=== PATIENT | female | born 1940 | race Caucasian/White ===

== ENCOUNTER → 2018-01-31 09:18 | Outpatient (CLI) | payer MEDICARE, SELFPAY ==
[2018-01-31 09:42] LABS: Add Manual Diff / Slide Review NO; Basophils Percent Auto 0.6 % (0-2); Eosinophils Percent Auto 1.9 % (2-4); Hematocrit 39.6 % (36-46); Hemoglobin 13.5 g/dL (12.0-16.0); Mean Corpuscular HGB Conc 34.1 % (30-36); Mean Corpuscular Hemoglobin 33.1 PG (26-34); Mean Corpuscular Volume 97.2 fL (80-100); Monocytes Percent Auto 12.1 % (3-14); Neutrophils Absolute Auto 2000 /uL (3000-5900); Neutrophils Percent Auto 51.4 % (50-75); Platelet Count 218 X10^3/uL (150-400); Red Blood Cell Count 4.07 X10^6/uL (4.0-5.2); Red Cell Distribution Width 12.8 % (11.6-14.8); White Blood Cell Count 3.8 X10^3/uL (4.5-11.0)
[2018-01-31 10:12] LABS: Alanine Aminotransferase 26 IU/L (9-52); Albumin 4.3 g/dL (3.5-5.0); Albumin Globulin Ratio 1.3 (1.0-2.8); Alkaline Phosphatase 68 U/L (38-126); Aspartate Aminotransferase 30 IU/L (14-36); BUN Creatinine Ratio 23.6 (6-22); Bilirubin Total 0.5 mg/dL (0.2-1.3); Blood Urea Nitrogen 26 mg/dL (7-17); Calcium 9.7 mg/dL (8.4-10.2); Carbon Dioxide 31 mmol/L (22-32); Chloride 99 mmol/L (98-107); Estimated Glomerular Filt Rate 48.4 mL/min (>60); Globulin 3.3 g/dL (1.7-4.1); Glucose 102 mg/dL (80-110); HEMOLYSIS < 15 (0-50); Potassium 4.4 mmol/L (3.4-5.1); Sodium 138 mmol/L (137-145); Total Protein 7.6 g/dL (6.3-8.2)
[2018-01-31 10:58] LABS: TSH w/ Reflex to FT4 1.61 uIU/mL (0.47-4.68)
== END ==
PROVIDERS: PCP Family Medicine; Visit Provider Family Medicine
DX: R53.83 Other fatigue (principal)
CPT/HCPCS: 36415; 80053; 84443; 85025

== ENCOUNTER 2018-03-06 09:52 | Day surgery (SDC) | payer MEDICARE, SELFPAY ==
[2018-03-06 10:18] VITALS: BP 145/83; PULSE 92; RESP 16; TEMP 35.9; O2SAT 99
[2018-03-06] MEDS: SODIUM CHLORIDE 0.9% 1,000 ML 200 ML IV (10:19)
--- NOTE | 2018-03-06 10:32 | PM.HP.1 ---
History of Present Illness Date Patient Seen: 03/06/18 Time Patient Seen: 10:32 Chief complaint: [id number] COLONOSCOPY Narrative: Very pleasant lady who is well known to me from prior visits. She presents today for her 1st screening colonoscopy. She denies any problems or symptoms related to the function of her GI tract. She reports that her mother with colon cancer sometime after the age of 60. Patient History Medical History History of herpes simplex infection (Chronic) Hyperlipidemia (Chronic) Hypothyroidism (Chronic ~1970) Sleep disturbance (Chronic) Surgical History S/P bilateral cataract extraction (Resolved) S/P excision of vocal cord nodule (Resolved) S/P total hysterectomy and bilateral salpingo-oophorectomy (Resolved) Family & Social History Family History: Reviewed 03/06/18 by Cassandra Iyer MD Social History: household members friend(s) Tobacco & Substance use: Smoking Status Former smoker Meds Home Medications Medication Instructions Recorded Confirmed Type acyclovir [Zovirax] 200 mg PO BID #60 cap 04/18/17 02/19/18 Rx VITAMIN D (Vitamin D3) 4,000 units PO QDAY #0 10/16/17 03/06/18 History ascorbic acid (vitamin C) 500 mg PO QDAY #0 10/16/17 03/06/18 History levothyroxine [Synthroid] 0.075 mg PO QAM #90 tab 11/07/17 03/06/18 Rx gabapentin 300 mg capsule 300 mg PO BID cap 01/31/18 03/06/18 History naproxen sodium 220 mg capsule 440 mg PO BID 01/31/18 03/06/18 History triamterene 37.5 1 cap PO QDAY #90 tab 01/31/18 03/06/18 Rx mg-hydrochlorothiazide 25 mg capsule letrozole 2.5 mg PO DAILY 03/06/18 03/06/18 History magnesium 500 mg PO DAILY 03/06/18 03/06/18 History Allergies Allergy/AdvReac Type Severity Reaction Status Date / Time latex [LATEX] Allergy Mild blisters Verified 02/19/18 13:22 Penicillins [PENICILLINS] Allergy Mild HIVES Verified 02/19/18 13:22 Review of Systems Review of Systems All systems reviewed & are unremarkable except as noted in HPI and below Exam Vital Signs (past 8 hours): - 03/06/18 10:18 Temperature 96.6 F L Pulse Rate 92 H Respiratory Rate 16 Blood Pressure 145/83 H Pulse Oximetry 99 Oxygen Delivery Method Room Air Narrative Exam Narrative: Very pleasant well-nourished well-developed lady in no distress. HEENT: Normocephalic and atraumatic, pupils equal round reactive to light accommodation with anicteric sclera. Lungs: Clear to auscultation bilaterally Heart: Regular rate and rhythm Abdomen: Soft, nontender, active bowel sounds Extremities: Warm and well perfused without edema Assessment & Plan Plan: Assessment/Plan Narrative: Very pleasant 77-year-old lady who presents for her 1st screening colonoscopy. We discussed the risks and benefits of procedure the patient has expressed a desire to completed today.
[2018-03-06] MEDS: MIDAZOLAM 5 MG/5 ML VIAL IV (10:46)
[2018-03-06] MEDS: fentaNYL 250 MCG/5 ML INJ IV (10:46)
--- NOTE | 2018-03-06 10:58 | PM.OP.1 ---
Operative Date/Time/Diagnoses Date of procedure: 03/06/18 Time of procedure: 10:58 Pre-op diagnosis: Screening Post-op diagnosis: same Procedure & Clinicians Procedure: Colonoscopy to the cecum Same procedure as scheduled: Yes Indications: No prior colonoscopy Family history of colon cancer in mother Surgeon: Cassandra Iyer Click Yes if Unassisted: Yes Anesthesia Type: Sedation (Versed 6 mg; fentanyl 200 mcg) Operative Notes Findings: 1. Excellent prep 2. No polyps or mass lesions 3. No AV malformations 4. Minimal diverticulosis limited to the sigmoid region 5. Grade 2 internal hemorrhoids Closure Type: not applicable Procedure in detail: After obtaining informed consent, the patient was brought to the GI suite and placed in the left lateral decubitus position on the examination table. After placement of appropriate monitors, the patient was given incremental doses of Versed and Fentanyl until an appropriate level of sedation was achieved. A time out was held per SCOAP protocol. A digital rectal examination was performed and did not reveal any masses or obstructing lesions. The colonoscope was gently passed into the patient's anus and the entire colon navigated to the level of the cecum with minimal difficulty. Once in the cecum, the scope was withdrawn being sure to go before and beyond all mucosal folds and prominences and get an excellent examination. The findings are noted above. At the level of the rectal vault, the scope was retroflexed and the internal anal canal was examined. The scope was straightened and air aspirated from the colon. The instrument was removed from the patient's body and the procedure was concluded. The patient was allowed to awaken from sedation without difficulty and taken to the post-anesthesia care unit in good condition. Total sedation time 23 min Total withdrawal time 9 min 22 sec Complications: none Condition: stable Disposition: PACU Plan for aftercare: 1. Discharge to home 2. Plan for next colonoscopy in 5 years or as clinically indicated
[2018-03-06 11:03] VITALS: BP 109/67; PULSE 75; RESP 12; TEMP 36.3; O2SAT 94
[2018-03-06 11:06] VITALS: BP 118/74; PULSE 70; RESP 10; O2SAT 94
[2018-03-06 11:11] VITALS: BP 117/74; PULSE 62; RESP 10; O2SAT 95
[2018-03-06] MEDS: ONDANSETRON 4 MG/2 ML INJ IV (11:11)
[2018-03-06 11:16] VITALS: BP 124/70; PULSE 63; RESP 12; TEMP 36.6
[2018-03-06 11:35] VITALS: BP 128/73; PULSE 66; RESP 16; TEMP 36.2; O2SAT 98
== END 2018-03-06 11:45 | disposition home or self-care (01) ==
LOC: ENDO 09:53
PROVIDERS: PCP Family Medicine; Visit Provider Surgery
PROC: 0DJD8ZZ Inspection of Lower Intestinal Tract, Via Natural or Artificial Opening Endoscopic (ICD-10-PCS; CPT 45378; principal; 2018-03-06 11:00)
DX: Z12.11 Encounter for screening for malignant neoplasm of colon (principal); Z80.0 Family history of malignant neoplasm of digestive organs; K57.30 Diverticulosis of large intestine without perforation or abscess without bleeding; K64.1 Second degree hemorrhoids
CPT/HCPCS: G0105; 99152; 99153; J2250; J2405; J3010

== ENCOUNTER → 2018-04-14 17:29 | Outpatient (CLI) | payer MEDICARE, SELFPAY ==
[2018-04-14 20:00] LABS: BUN Creatinine Ratio 16.9 (6-22); Blood Urea Nitrogen 22 mg/dL (7-17); Estimated Glomerular Filt Rate 39.9 mL/min (>60)
== END ==
PROVIDERS: Visit Provider Family Medicine
DX: R79.89 Other specified abnormal findings of blood chemistry (principal)
CPT/HCPCS: 36415; 82565; 84520

== ENCOUNTER → 2018-05-05 11:09 | Outpatient (CLI) | payer MEDICARE, SELFPAY ==
[2018-05-05 12:36] LABS: BUN Creatinine Ratio 15.5 (6-22); Blood Urea Nitrogen 17 mg/dL (7-17); Carbon Dioxide 30 mmol/L (22-32); Chloride 102 mmol/L (98-107); Estimated Glomerular Filt Rate 48.4 mL/min (>60); Glucose 99 mg/dL (80-110); HEMOLYSIS < 15 (0-50); Sodium 140 mmol/L (137-145)
[2018-05-05 12:37] LABS: Potassium 4.3 mmol/L (3.4-5.1)
[2018-05-05 13:43] LABS: Bacteria Urine None Seen; RBC Urine None Seen (0-5/HPF); WBC Urine None Seen (0-5/HPF)
[2018-05-05 15:14] LABS: Appearance Urine UA CLEAR; Bilirubin Urine UA NEGATIVE (NEGATIVE); Color Urine UA YELLOW; Glucose Urine UA NEGATIVE (Normal); Ketones Urine UA NEGATIVE (NEGATIVE); Leukocyte Esterase Urine UA NEGATIVE (NEGATIVE); Nitrite Urine UA NEGATIVE (Negative); Occult Blood Urine UA NEGATIVE (Negative); Protein Urine UA NEGATIVE (Negative); Specific Gravity Urine UA <=1.005 (1.000-1.035); Urobilinogen Urine UA 0.2 E.U./dL (0.2); pH Urine UA 6.5 (4.5-8.0)
[2018-05-05 16:18] LABS: Culture Indicated Urine Cult Not Indicated; Squamous Epithelial Cell Urine 0-1 /HPF
== END ==
PROVIDERS: PCP Family Medicine; Visit Provider Family Medicine
DX: N28.9 Disorder of kidney and ureter, unspecified (principal)
CPT/HCPCS: 36415; 80048; 81001

== ENCOUNTER → 2018-07-01 08:29 | Outpatient (CLI) | payer MEDICARE, SELFPAY ==
[2018-07-01 08:46] LABS: Add Manual Diff / Slide Review NO; Basophils Percent Auto 0.9 % (0-2); Eosinophils Percent Auto 1.8 % (2-4); Hematocrit 39.1 % (36-46); Hemoglobin 13.5 g/dL (12.0-16.0); Lymphocytes Percent Auto 44.7 % (25-40); Mean Corpuscular HGB Conc 34.6 % (30-36); Mean Corpuscular Hemoglobin 33.2 PG (26-34); Monocytes Percent Auto 11.1 % (3-14); Neutrophils Absolute Auto 1600 /uL (3000-5900); Neutrophils Percent Auto 41.5 % (50-75); Platelet Count 250 X10^3/uL (150-400); Red Blood Cell Count 4.07 X10^6/uL (4.0-5.2); Red Cell Distribution Width 12.9 % (11.6-14.8); White Blood Cell Count 3.9 X10^3/uL (4.5-11.0)
[2018-07-01 09:05] LABS: Alanine Aminotransferase 25 IU/L (9-52); Albumin 4.3 g/dL (3.5-5.0); Albumin Globulin Ratio 1.3 (1.0-2.8); Alkaline Phosphatase 66 U/L (38-126); Aspartate Aminotransferase 24 IU/L (14-36); Bilirubin Total 0.5 mg/dL (0.2-1.3); Blood Urea Nitrogen 22 mg/dL (7-17); Calcium 9.7 mg/dL (8.4-10.2); Carbon Dioxide 27 mmol/L (22-32); Chloride 102 mmol/L (98-107); Estimated Glomerular Filt Rate 54.1 mL/min (>60); Globulin 3.3 g/dL (1.7-4.1); Glucose 91 mg/dL (80-110); HEMOLYSIS < 15 (0-50); Potassium 4.1 mmol/L (3.4-5.1); Sodium 141 mmol/L (137-145); Total Protein 7.6 g/dL (6.3-8.2)
== END ==
PROVIDERS: Family Provider Family Medicine; PCP Family Medicine; Visit Provider Internal Medicine Hematology & Oncology
DX: D05.11 Intraductal carcinoma in situ of right breast (principal)
CPT/HCPCS: 36415; 80053; 85025

== ENCOUNTER → 2018-07-25 17:01 | Outpatient (CLI) | payer MEDICARE, SELFPAY ==
[2018-07-25 18:24] LABS: BUN Creatinine Ratio 17.5 (6-22); Blood Urea Nitrogen 21 mg/dL (7-17); Calcium 10.1 mg/dL (8.4-10.2); Carbon Dioxide 30 mmol/L (22-32); Chloride 101 mmol/L (98-107); Estimated Glomerular Filt Rate 43.8 mL/min (>60); Glucose 100 mg/dL (80-110); HEMOLYSIS < 15 (0-50); Potassium 4.2 mmol/L (3.4-5.1); Sodium 140 mmol/L (137-145)
== END ==
PROVIDERS: PCP Family Medicine; Visit Provider Family Medicine
DX: Z01.31 Encounter for examination of blood pressure with abnormal findings (principal)
CPT/HCPCS: 36415; 80048

== ENCOUNTER → 2018-09-04 11:35 | Outpatient (CLI) | payer MEDICARE, SELFPAY ==
--- NOTE | 2018-09-04 | DI.MG.S_ITS ---
BILATERAL DIGITAL SCREENING MAMMOGRAM 3D/2D WITH CAD: 09/04/2018 CLINICAL: Routine screening. Personal history of right breast cancer. Family history of breast cancer. Comparison is made to exams dated: 08/12/2017 mammogram, 12/20/2015 mammogram, 07/17/2012 mammogram, and 03/08/2011 mammogram - [facility]. The tissue of both breasts is heterogeneously dense. This may lower the sensitivity of mammography. Current study was also evaluated with a Computer Aided Detection (CAD) system. There are benign calcifications in both breasts. No significant masses, calcifications, or other findings are seen in either breast. There has been no significant interval change. IMPRESSION: There is no mammographic evidence of malignancy. A 1 year screening mammogram is recommended. This exam was interpreted at Station ID: [id number]. NOTE: For mammograms, a report in lay terms will be sent to the patient. Approximately 15% of breast malignancies will not be visualized mammographically. In the management of a palpable breast mass, a negative mammogram must not discourage biopsy of a clinically suspicious lesion. Electronically Signed By: Ector orlando/samira:09/09/2018 18:11:23 copy to: Lourdes Cordova letter sent: Normal Exam ACR BI-RADS Category 2: Benign Finding(s) 3342F
== END ==
PROVIDERS: Family Provider Family Medicine; PCP Family Medicine
DX: Z12.31 Encounter for screening mammogram for malignant neoplasm of breast (principal); Z85.3 Personal history of malignant neoplasm of breast; Z80.3 Family history of malignant neoplasm of breast
CPT/HCPCS: 77063; 77067

== ENCOUNTER → 2018-11-07 08:41 | Outpatient (CLI) | payer MEDICARE, SELFPAY | PROVIDERS: PCP Family Medicine; Visit Provider Ophthalmology | DX: H16.9 Unspecified keratitis (principal) | CPT/HCPCS: 87070; 87205 ==

== ENCOUNTER → 2018-11-10 10:24 | Outpatient (CLI) | payer MEDICARE, SELFPAY ==
--- NOTE | 2018-11-10 11:06 | DI.CT.S_ITS ---
PROCEDURE: CT CHEST WO CON INDICATIONS: lung nodule follow up TECHNIQUE: Noncontrast 2.0-2.5 mm thick sections acquired from the pulmonary apices to the posterior costophrenic angles. 7 mm thick coronal and sagittal MIP reformats were then acquired. A low radiation dose technique was utilized. COMPARISON: [facility], CT, THORAX WITHOUT CONTRAST, 08/14/2017, 8:01. [facility], CT, THORAX WITHOUT CONTRAST, 11/08/2017, 9:59. [facility], CT, CT CHEUNG, 12/10/2017, 14:03. FINDINGS: Image quality: Diagnostic, given the low radiation dose technique. Lungs and pleura: The 3 prior identified left lung nodules are again seen as is the single right-sided lung nodule. One of the left nodules is found to contain a small amount of peripheral calcification and none of these structures have changed over time. No new nodule has developed. Mediastinum: Heart size is normal. No pericardial effusion. No mediastinal adenopathy by size criteria. Thoracic aorta and central pulmonary arteries are normal in size. Esophagus is normal in caliber. No hiatal hernia. Bones and chest wall: No suspicious bony lesions. No vertebral body compression fractures. No axillary or supraclavicular adenopathy by size criteria. Thyroid gland is not well-seen by this noncontrast technique. Abdomen: Visualized upper abdomen solid organs and bowel loops appear normal in the absence of contrast. IMPRESSION: The prior pulmonary nodules present bilaterally have been small, one of which is faintly calcified, and likely granulomatous in origin. No followup recommended. This has not changed from July 2017. Dictated by: Carlos Garcia M.D. on 11/10/2018 at 12:14 Approved by: Carlos Garcia M.D. on 11/10/2018 at 12:23
== END ==
PROVIDERS: PCP Family Medicine; Visit Provider Family Medicine
DX: R91.8 Other nonspecific abnormal finding of lung field (principal)
CPT/HCPCS: 71250

== ENCOUNTER → 2018-12-24 08:36 | Outpatient (CLI) | payer MEDICARE, SELFPAY ==
[2018-12-24 09:55] LABS: Blood Urea Nitrogen 17 mg/dL (7-17); Calcium 10.2 mg/dL (8.4-10.2); Carbon Dioxide 32 mmol/L (22-32); Chloride 100 mmol/L (98-107); Estimated Glomerular Filt Rate 53.9 mL/min (>60); Glucose 111 mg/dL (80-110); HEMOLYSIS < 15 (0-50); Potassium 4.5 mmol/L (3.4-5.1); Sodium 137 mmol/L (137-145)
[2018-12-24 10:16] LABS: TSH w/ Reflex to FT4 1.45 uIU/mL (0.47-4.68)
== END ==
PROVIDERS: PCP Family Medicine; Visit Provider Family Medicine
DX: E03.9 Hypothyroidism, unspecified (principal); I10 Essential (primary) hypertension
CPT/HCPCS: 36415; 80048; 84443

== ENCOUNTER → 2019-09-07 11:07 | Outpatient (CLI) | payer MEDICARE, SELFPAY ==
--- NOTE | 2019-09-07 | DI.MG.S_ITS ---
BILATERAL DIGITAL SCREENING MAMMOGRAM 3D/2D WITH CAD: 09/07/2019 CLINICAL: Routine screening. Personal history of right breast cancer. Family history of breast cancer. Comparison is made to exams dated: 09/04/2018 mammogram - [facility], 08/12/2017 mammogram, and 12/20/2015 mammogram - [facility]. The tissue of both breasts is heterogeneously dense. This may lower the sensitivity of mammography. Current study was also evaluated with a Computer Aided Detection (CAD) system. There are benign calcifications in both breasts. No significant masses, calcifications, or other findings are seen in either breast. There has been no significant interval change. IMPRESSION: There is no mammographic evidence of malignancy. A 1 year screening mammogram is recommended. This exam was interpreted at Station ID: [id number]. NOTE: For mammograms, a report in lay terms will be sent to the patient. Approximately 15% of breast malignancies will not be visualized mammographically. In the management of a palpable breast mass, a negative mammogram must not discourage biopsy of a clinically suspicious lesion. Electronically Signed By: Ector orlando/samira:09/08/2019 09:09:04 copy to: Lourdes Heredia letter sent: Normal Exam ACR BI-RADS Category 2: Benign Finding(s) 3342F
== END ==
PROVIDERS: PCP Family Medicine; Referring Provider Family Medicine; Visit Provider Family Medicine
DX: Z12.31 Encounter for screening mammogram for malignant neoplasm of breast (principal); Z85.3 Personal history of malignant neoplasm of breast; Z80.3 Family history of malignant neoplasm of breast
CPT/HCPCS: 77063; 77067

== ENCOUNTER 2020-06-09 09:45 | Outpatient (RCR) | payer MEDICARE, SELFPAY ==
--- NOTE | 2020-05-02 09:00 | PT.OIE ---
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 female breast (05/02/20) Estrogen receptor positive status [ER+] (05/02/20) Past Medical History (Last Reviewed 06/07/19 @ 14:56 by Lourdes Heredia DO) History of herpes simplex infection (Chronic) Hyperlipidemia (Chronic) Hypothyroidism (Chronic ~1970) Sleep disturbance (Chronic) Past Surgical History (Last Reviewed 06/07/19 @ 14:56 by Lourdes Heredia DO) S/P bilateral cataract extraction (Resolved) S/P excision of vocal cord nodule (Resolved) S/P total hysterectomy and bilateral salpingo-oophorectomy (Resolved) Visit Care Team Role Provider Type Lourdes Heredia DO Primary Care Provider Physician Specialty: Family Practice Address: [facility], [facility] [place], [address] Email: [email or web address] Pedro Lopez MD Attending Provider Non-Staff Referring Provider Specialty: Radiology Address: [address] [place] [address], [id number] Email: Physical Therapy Initial Evaluation PT-OP-A Visit Information Start: 04/28/20 16:36 Freq: Status: Active Protocol: Document 05/02/20 09:05 [facility] (Rec: 05/03/20 08:59 [facility] [id number]) Out-Patient Physical Therapy Visit Information Visit Information Visit Type Initial Evaluation Visit Start Time 09:03 Visit Stop Time 09:50 Total Visit Minutes 47 Visit Number 1 Evaluation Information Evaluation Date 05/02/20 PT-OP-B Current Condition Start: 04/28/20 16:36 Freq: Status: Active Protocol: Document 05/02/20 09:05 [facility] (Rec: 05/02/20 09:45 [facility] [id number]) Current Condition History of Current Condition Onset Date 6 mo+ Current Complaints pain right axilla, posterior shoulder/shoulder blade History of Current Condition Patient reports gripping pain right armpit, and posterior shoulder, anterior chest; lumpectomy and radiation finished 2 years ago. 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 Couldn't tolerate medications prescribed , states couldn't get out of bed, so no active treatment at this time. Tried to get in for PT right about time Covid shut things down. Takes Alleve (mostly for thumb pain), hasn't changed her pain. Had friend give her post mastectomy exercises, but didn't seem to help. States she feels her shoulder ROM is getting worse. The pain is unpredictable, can do yardwork without pain. Pain is variable, can come on at any time. Denies redness, warmth, swelling. Prior Treatments and Tests recent mammogram negative Treatment Goals Patient/Caregiver Goals Minimize, eliminate the pain. Prior Functional Status Baseline Function- ADL's Independent Baseline Function- Mobility Independent Baseline Function- Recreation/Hobbies No limitations Current Functional Impairments (Reported) Functional Limitations- ADL's difficulty reaching overhead or behind her back. Functional Limitations- Recreation/ states pain can come on while Hobbies walking and she has to pause for 1-2 min to let it pass. PT-OP-C Subjective Start: 05/03/20 08:37 Freq: Status: Active Protocol: Document 05/02/20 09:05 [facility] (Rec: 05/03/20 08:59 [facility] [id number]) OP-PT Pain Assessment Pain Assessment Grid Paper Pain Assessment Grid Completed Yes Location right axilla, posterior shoulder/scapula Intensity 6 Description Aching,Spasm,Stabbing Frequency No Pattern Pain Aggravating Factors None Pain Alleviating Factors None Home Pain Medication Use Pain Medications Used Yes Patient Goal Taking Alleve Pain Behaviors Pain Behaviors Facial Grimacing,Guarding, Holding Area,Wincing PT-OP-E Functional Tests Start: 04/28/20 16:36 Freq: Status: Active Protocol: Document 05/02/20 09:05 [facility] (Rec: 05/03/20 08:59 [facility] [id number]) Functional Tests Apley's Scratch Test Action 1- Left posterior shoulder Action 1- Right anterior shoulder Action 2- Left T2 Action 2- Right posterior ear Action 3- Left T7 Action 3- Right L1 PT-OP-F Manual Assessment Start: 04/28/20 16:36 Freq: Status: Active Protocol: Document 05/02/20 09:05 [facility] (Rec: 05/03/20 08:59 [facility] [id number]) Manual Assessments Soft Tissue Assessment Soft Tissue Mobility Assessment increased soft tissue tightness right upper trap, levator scap, rhomboids PT-OP-J Posture/Palpation/Skin Start: 04/28/20 16:36 Freq: Status: Active Protocol: Document 05/02/20 09:05 [facility] (Rec: 05/03/20 08:59 [facility] [id number]) Posture Evaluation Position Sitting Head/C-Spine Posture Forward Head T-Spine Posture Increased Kyphosis Shoulder Posture (L) Rounded Scapula Posture (L) Protracted,(R) Protracted Arm Posture (L) Internally Rotated,(R) Internally Rotated Palpation Assessment Location UT, LS, rhomboids Palpation Location right Palpation Findings Soft Tissue Tightness,Muscle Guarding,Trigger Point PT-OP-K Range of Motion Start: 04/28/20 16:36 Freq: Status: Active Protocol: Document 05/02/20 09:05 [facility] (Rec: 05/03/20 08:59 [facility] [id number]) Cervical Spine Range of Motion Cervical Spine Active Degrees Flexion 55 Extension 40 Rotation Left 55 Rotation Right 70 Lateral Flexion Left 40 Lateral Flexion Right 55 ROM Limitations Soft Tissue Tightness Shoulder Goniometric Range of Motion Shoulder Right Flexion 142 Extension 24 Abduction 135 External Rotation at 45 degrees 55 Abduction Internal Rotation Behind Back (text) L1 Left Active Shoulder ROM WFL Yes Testing Position Sitting Shoulder ROM Limitations Shoulder ROM Limitations Soft Tissue Tightness PT-OP-M Strength Start: 04/28/20 16:36 Freq: Status: Active Protocol: Document 05/02/20 09:05 [facility] (Rec: 05/03/20 08:59 [facility] [id number]) Shoulder Strength Shoulder Manual Muscle Testing Right Flexion 4 Good Extension 4 Good Abduction (C5) 4 Good External Rotation 4- Good- Internal Rotation 4- Good- Left Flexion 5 Normal Extension 5 Normal Abduction (C5) 4+ Good+ External Rotation 4+ Good+ Internal Rotation 4+ Good+ PT-OP-N Lymphedema Start: 04/28/20 16:36 Freq: Status: Active Protocol: Document 05/02/20 09:05 [facility] (Rec: 05/03/20 08:59 [facility] [id number]) Lymphedema Measurements Upper Extremity Circumference Measurements right MCP 22 cm Wrist 17.3 cm 5 cm From Distal Crease 17.6 cm 10 cm From Distal Crease 20.7 cm 15 cm From Distal Crease 23.6 cm 20 cm From Distal Crease 24.7 cm 25 cm From Distal Crease 25.8 cm 30 cm From Distal Crease 27.7 cm 35 cm From Distal Crease 28.8 cm 40 cm From Distal Crease 30.7 cm 45 cm From Distal Crease 38.3 cm Left MCP 19.8 cm Wrist 17.5 cm 5 cm From Distal Crease 17.4 cm 10 cm From Distal Crease 19.8 cm 15 cm From Distal Crease 22.7 cm 20 cm From Distal Crease 24.4 cm 25 cm From Distal Crease 25.5 cm 30 cm From Distal Crease 26.5 cm 35 cm From Distal Crease 27.6 cm 40 cm From Distal Crease 30.9 cm 45 cm From Distal Crease 37.3 cm Comments Lymphedema Comments Patient is right handed PT-OP-Q Treatments Start: 04/28/20 16:36 Freq: Status: Active Protocol: Document 05/02/20 09:05 [facility] (Rec: 05/03/20 08:59 [facility] [id number]) Self-Care/Home Management Treatment Education Patient Education Home Exercise Program Other Education issued written handout PT-OP-T Assessment and Plan Start: 04/28/20 16:36 Freq: Status: Active Protocol: Document 05/02/20 09:05 [facility] (Rec: 05/03/20 08:59 [facility] [id number]) Physical Therapy Assessment Rehab Potential Rehabilitation Potential Good Evaluation Complexity Number of Personal Factors/Comorbidities 1-2 Number of Body Systems Impaired 3 Clinical Presentation at Evaluation Evolving Impairments Impairments Pain,ROM,Strength Goals 3 Impairment decreased right shoulder strength Short Term Goal (STG) Patient will be independent with HEP for purposes of right shoulder strengthening STG Duration 07/04/20 Hose Sprayer Goal (LTG) Patient will demonstrate 5/5 strength right shoulder LTG Duration 08/01/20 2 Impairment difficulty reaching overhead and behind her back Short Term Goal (STG) Patient will be independent with HEP for purposes of right shoulder ROM Hose Sprayer Goal (LTG) Patient will demonstrate full ROM of her right shoulder to allow her to reach overhead and behind her back for all ADL's and usual activities around the home LTG Duration 08/01/20 1 Impairment pain right axilla, posterior shoulder, scapular region Short Term Goal (STG) Decrease pain by at least 50% Hose Sprayer Goal (LTG) Decrease pain by at least 75% with all usual activities LTG Duration 08/01/20 Assessment Summary Assessment Patient presents with function limiting pain right subaxillary region and scapular area with signs and symptom consistent with soft tissue shortening, muscle imbalances. May be related to lumpectomy and radiation 2 years ago. Does not appear to have lymphedema in her right UE based on circumferential measurements, no palpable axillary cording. Patient does have mild increased size right breast as compared to left but patient not sure how this compares to prior to surgery so will need to monitor for any changes. Feel she would benefit from PT to improve her soft tissue mobility, ROM, and strength, to decrease her pain and improve her overall function in her right UE. Physical Therapy Plan Frequency and Duration Frequency of Treatment 2x/Week Duration of Treatment 12 weeks Plan of Care Start Date 05/02/20 Plan of Care End Date 08/01/20 Next Visit Focus/Plan Next Note Type Treatment Note Next Visit Plan Review HEP, add pulleys, manual techniques to improve soft tissue mobility right axilla. Consider gentle moist heat.
--- NOTE | 2020-05-03 11:13 | PT.OPPOC ---
Physical, Occupational & Speech Therapy At [facility] 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 female breast (05/02/20) Estrogen receptor positive status [ER+] (05/02/20) Visit Care Team Role Provider Type Lourdes Heredia DO Primary Care Provider Physician Specialty: Family Practice Address: [address] [place] [address], [facility], [place], [address] Email: [email or web address] Pedro Lopez MD Attending Provider Non-Staff Referring Provider Specialty: Radiology Address: [address] [place] [address], [place], [address] Email: Plan Of Care PT-OP-T Assessment and Plan Start: 04/28/20 16:36 Freq: Status: Active Protocol: Document 05/02/20 09:05 [facility] (Rec: 05/03/20 08:59 [facility] [id number]) Physical Therapy Assessment Rehab Potential Rehabilitation Potential Good Evaluation Complexity Number of Personal Factors/Comorbidities 1-2 Number of Body Systems Impaired 3 Clinical Presentation at Evaluation Evolving Impairments Impairments Pain,ROM,Strength Goals 3 Impairment decreased right shoulder strength Short Term Goal (STG) Patient will be independent with HEP for purposes of right shoulder strengthening STG Duration 07/04/20 Latex Thread Machine Operator Goal (LTG) Patient will demonstrate 5/5 strength right shoulder LTG Duration 08/01/20 2 Impairment difficulty reaching overhead and behind her back Short Term Goal (STG) Patient will be independent with HEP for purposes of right shoulder ROM Latex Thread Machine Operator Goal (LTG) Patient will demonstrate full ROM of her right shoulder to allow her to reach overhead and behind her back for all ADL's and usual activities around the home LTG Duration 08/01/20 1 Impairment pain right axilla, posterior shoulder, scapular region Short Term Goal (STG) Decrease pain by at least 50% Latex Thread Machine Operator Goal (LTG) Decrease pain by at least 75% with all usual activities LTG Duration 08/01/20 Assessment Summary Assessment Patient presents with function limiting pain right subaxillary region and scapular area with signs and symptom consistent with soft tissue shortening, muscle imbalances. May be related to lumpectomy and radiation 2 years ago. Does not appear to have lymphedema in her right UE based on circumferential measurements, no palpable axillary cording. Patient does have mild increased size right breast as compared to left but patient not sure how this compares to prior to surgery so will need to monitor for any changes. Feel she would benefit from PT to improve her soft tissue mobility, ROM, and strength, to decrease her pain and improve her overall function in her right UE. Physical Therapy Plan Frequency and Duration Frequency of Treatment 2x/Week Duration of Treatment 12 weeks Plan of Care Start Date 05/02/20 Plan of Care End Date 08/01/20 Next Visit Focus/Plan Next Note Type Treatment Note Next Visit Plan Review HEP, add pulleys, manual techniques to improve soft tissue mobility right axilla. Consider gentle moist heat. Plan of Care Dates Plan of Care Start Date 05/02/20 Plan of Care End Date 08/01/20 Electronically Signed by: Fanny Blanco PT 05/03/20 1051 Please Sign and Return: I have reviewed this Plan of Care and certify that the skilled therapy services above are required to meet the patient?s needs. Physician Signature Date Printed Name and Credentials Clinical Instructor Signature Printed Name and Credentials
--- NOTE | 2020-05-11 10:08 | PT.OTN ---
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 female breast (05/11/20) Estrogen receptor positive status [ER+] (05/11/20) Physical Therapy Treatment Note PT-OP-A Visit Information Start: 04/28/20 16:36 Freq: Status: Active Protocol: Document 05/11/20 09:00 SAK (Rec: 05/11/20 09:57 [facility] [id number]) Out-Patient Physical Therapy Visit Information Visit Information Visit Type Initial Evaluation Visit Start Time 09:00 Visit Stop Time 09:46 Total Visit Minutes 46 Visit Number 2 Evaluation Information Evaluation Date 05/02/20 PT-OP-B Current Condition Start: 04/28/20 16:36 Freq: Status: Active Protocol: Document 05/11/20 09:00 SAK (Rec: 05/11/20 09:57 SAK [id number]) Current Condition History of Current Condition Onset Date 6 mo+ Current Complaints pain right axilla, posterior shoulder/shoulder blade History of Current Condition Patient reports gripping pain right armpit, and posterior shoulder, anterior chest; lumpectomy and radiation finished 2 years ago. 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 Couldn't tolerate medications prescribed , states couldn't get out of bed, so no active treatment at this time. Tried to get in for PT right about time Covid shut things down. Takes Alleve (mostly for thumb pain), hasn't changed her pain. Had friend give her post mastectomy exercises, but didn't seem to help. States she feels her shoulder ROM is getting worse. The pain is unpredictable, can do yardwork without pain. Pain is variable, can come on at any time. Denies redness, warmth, swelling. Prior Treatments and Tests recent mammogram negative PT-OP-C Subjective Start: 05/03/20 08:37 Freq: Status: Active Protocol: Document 05/11/20 09:00 SAK (Rec: 05/11/20 09:57 SAK [id number]) OP-PT Subjective Patient Comments Patient Comments Some decrease in frequency, no change in intensity of pain. C/o exquisite pain anterior chest right at times. PT-OP-E Functional Tests Start: 04/28/20 16:36 Freq: Status: Active Protocol: Document 05/02/20 09:05 SAK (Rec: 05/03/20 08:59 [facility] [id number]) Functional Tests Apley's Scratch Test Action 1- Left posterior shoulder Action 1- Right anterior shoulder Action 2- Left T2 Action 2- Right posterior ear Action 3- Left T7 Action 3- Right L1 PT-OP-F Manual Assessment Start: 04/28/20 16:36 Freq: Status: Active Protocol: Document 05/02/20 09:05 SAK (Rec: 05/03/20 08:59 [facility] [id number]) Manual Assessments Soft Tissue Assessment Soft Tissue Mobility Assessment increased soft tissue tightness right upper trap, levator scap, rhomboids PT-OP-J Posture/Palpation/Skin Start: 04/28/20 16:36 Freq: Status: Active Protocol: Document 05/02/20 09:05 [facility] (Rec: 05/03/20 08:59 [facility] [id number]) Posture Evaluation Position Sitting Head/C-Spine Posture Forward Head T-Spine Posture Increased Kyphosis Shoulder Posture (L) Rounded Scapula Posture (L) Protracted,(R) Protracted Arm Posture (L) Internally Rotated,(R) Internally Rotated Palpation Assessment Location UT, LS, rhomboids Palpation Location right Palpation Findings Soft Tissue Tightness,Muscle Guarding,Trigger Point PT-OP-K Range of Motion Start: 04/28/20 16:36 Freq: Status: Active Protocol: Document 05/02/20 09:05 SAK (Rec: 05/03/20 08:59 [facility] [id number]) Cervical Spine Range of Motion Cervical Spine Active Degrees Flexion 55 Extension 40 Rotation Left 55 Rotation Right 70 Lateral Flexion Left 40 Lateral Flexion Right 55 ROM Limitations Soft Tissue Tightness Shoulder Goniometric Range of Motion Shoulder Right Flexion 142 Extension 24 Abduction 135 External Rotation at 45 degrees 55 Abduction Internal Rotation Behind Back (text) L1 Left Active Shoulder ROM WFL Yes Testing Position Sitting Shoulder ROM Limitations Shoulder ROM Limitations Soft Tissue Tightness PT-OP-M Strength Start: 04/28/20 16:36 Freq: Status: Active Protocol: Document 05/02/20 09:05 SAK (Rec: 05/03/20 08:59 [facility] [id number]) Shoulder Strength Shoulder Manual Muscle Testing Right Flexion 4 Good Extension 4 Good Abduction (C5) 4 Good External Rotation 4- Good- Internal Rotation 4- Good- Left Flexion 5 Normal Extension 5 Normal Abduction (C5) 4+ Good+ External Rotation 4+ Good+ Internal Rotation 4+ Good+ PT-OP-N Lymphedema Start: 04/28/20 16:36 Freq: Status: Active Protocol: Document 05/02/20 09:05 [facility] (Rec: 05/03/20 08:59 [facility] [id number]) Lymphedema Measurements Upper Extremity Circumference Measurements right MCP 22 cm Wrist 17.3 cm 5 cm From Distal Crease 17.6 cm 10 cm From Distal Crease 20.7 cm 15 cm From Distal Crease 23.6 cm 20 cm From Distal Crease 24.7 cm 25 cm From Distal Crease 25.8 cm 30 cm From Distal Crease 27.7 cm 35 cm From Distal Crease 28.8 cm 40 cm From Distal Crease 30.7 cm 45 cm From Distal Crease 38.3 cm Left MCP 19.8 cm Wrist 17.5 cm 5 cm From Distal Crease 17.4 cm 10 cm From Distal Crease 19.8 cm 15 cm From Distal Crease 22.7 cm 20 cm From Distal Crease 24.4 cm 25 cm From Distal Crease 25.5 cm 30 cm From Distal Crease 26.5 cm 35 cm From Distal Crease 27.6 cm 40 cm From Distal Crease 30.9 cm 45 cm From Distal Crease 37.3 cm Comments Lymphedema Comments Patient is right handed PT-OP-Q Treatments Start: 04/28/20 16:36 Freq: Status: Active Protocol: Document 05/11/20 09:00 [facility] (Rec: 05/11/20 09:57 [facility] [id number]) Therapeutic Exercises Sidelying Exercises shoulder abduction from 90 Reps/Minutes 5x Comments manual scapular rotation with pt. active shoulder movement open book Reps/Minutes 5x Comments verbal and manual cues for segmental movement, deep breathing into tight ar Sitting Exercises upper trap stretch Reps/Minutes 2x ea side Comments hand under chair, mirror for visual feedback shoulder shrug Reps/Minutes 5x deep breathing Reps/Minutes 5x2 Comments abdominal, chest. Pt. hands for manual cues pulleys Sitting Exercise Name shoulder flex Reps/Minutes 6x Standing Exercises pulleys Comments done in sitting Manual Therapy Treatment Joint Mobilizations scapulothoracic Direction retraction, upward rotation Taping 1 Body Location right anterior chest Treatment Focus pain relief Type of Tape kinesiotape Skin Inspection intact Comments T4 costochodral joint stair pattern, 50% stretch Self-Care/Home Management Treatment Education Other Education gentle heat at home; patient unable to stay due to home schooling grandchildren PT-OP-T Assessment and Plan Start: 04/28/20 16:36 Freq: Status: Active Protocol: Document 05/11/20 09:00 EFRAÍN (Rec: 05/11/20 09:57 SAK [id number]) Physical Therapy Assessment Goals 3 Impairment decreased right shoulder strength Short Term Goal (STG) Patient will be independent with HEP for purposes of right shoulder strengthening STG Duration 07/04/20 Snf Goal (LTG) Patient will demonstrate 5/5 strength right shoulder LTG Duration 08/01/20 2 Impairment difficulty reaching overhead and behind her back Short Term Goal (STG) Patient will be independent with HEP for purposes of right shoulder ROM International Guest Coordinator Goal (LTG) Patient will demonstrate full ROM of her right shoulder to allow her to reach overhead and behind her back for all ADL's and usual activities around the home LTG Duration 08/01/20 1 Impairment pain right axilla, posterior shoulder, scapular region Short Term Goal (STG) Decrease pain by at least 50% Snf Goal (LTG) Decrease pain by at least 75% with all usual activities LTG Duration 08/01/20 Assessment Summary Assessment Good response to PT with decreased frequency of pain, improved motion after treatment with ther ex and manual treatment today. Patient has difficulty with deep breathing exercises but demonstrated good understanding and will practice at home; given written handout. Feel costochondral joint irritated T4 right; trial kinesiotape. Patient to try gentle heat at home for pain management. Physical Therapy Plan Frequency and Duration Frequency of Treatment 2x/Week Duration of Treatment 12 weeks Plan of Care Start Date 05/02/20 Plan of Care End Date 08/01/20 Next Visit Focus/Plan Next Note Type Treatment Note Next Visit Plan Assess response to PT. Continue with ther ex, possibly add scapular rows and shoulder ER
--- NOTE | 2020-05-16 15:12 | PT.OTN ---
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 female breast (05/16/20) Estrogen receptor positive status [ER+] (05/16/20) Physical Therapy Treatment Note PT-OP-A Visit Information Start: 04/28/20 16:36 Freq: Status: Active Protocol: Document 05/16/20 09:01 SAK (Rec: 05/16/20 09:23 SAK [id number]) Out-Patient Physical Therapy Visit Information Visit Information Visit Type Treatment Note Visit Start Time 09:00 Visit Stop Time 09:46 Total Visit Minutes 46 Visit Number 23 Evaluation Information Evaluation Date 05/02/20 PT-OP-B Current Condition Start: 04/28/20 16:36 Freq: Status: Active Protocol: Document 05/11/20 09:00 SAK (Rec: 05/11/20 09:57 SAK [id number]) Current Condition History of Current Condition Onset Date 6 mo+ Current Complaints pain right axilla, posterior shoulder/shoulder blade History of Current Condition Patient reports gripping pain right armpit, and posterior shoulder, anterior chest; lumpectomy and radiation finished 2 years ago. 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 Couldn't tolerate medications prescribed , states couldn't get out of bed, so no active treatment at this time. Tried to get in for PT right about time Covid shut things down. Takes Alleve (mostly for thumb pain), hasn't changed her pain. Had friend give her post mastectomy exercises, but didn't seem to help. States she feels her shoulder ROM is getting worse. The pain is unpredictable, can do yardwork without pain. Pain is variable, can come on at any time. Denies redness, warmth, swelling. Prior Treatments and Tests recent mammogram negative PT-OP-C Subjective Start: 05/03/20 08:37 Freq: Status: Active Protocol: Document 05/16/20 09:01 SAK (Rec: 05/16/20 09:23 SAK [id number]) OP-PT Subjective Patient Comments Patient Comments Sore today, admits to pushing into pain with exercises especially open book. PT-OP-E Functional Tests Start: 04/28/20 16:36 Freq: Status: Active Protocol: Document 05/02/20 09:05 SAK (Rec: 05/03/20 08:59 SAK [id number]) Functional Tests Apley's Scratch Test Action 1- Left posterior shoulder Action 1- Right anterior shoulder Action 2- Left T2 Action 2- Right posterior ear Action 3- Left T7 Action 3- Right L1 PT-OP-F Manual Assessment Start: 04/28/20 16:36 Freq: Status: Active Protocol: Document 05/02/20 09:05 [facility] (Rec: 05/03/20 08:59 [facility] [id number]) Manual Assessments Soft Tissue Assessment Soft Tissue Mobility Assessment increased soft tissue tightness right upper trap, levator scap, rhomboids PT-OP-J Posture/Palpation/Skin Start: 04/28/20 16:36 Freq: Status: Active Protocol: Document 05/02/20 09:05 [facility] (Rec: 05/03/20 08:59 [facility] [id number]) Posture Evaluation Position Sitting Head/C-Spine Posture Forward Head T-Spine Posture Increased Kyphosis Shoulder Posture (L) Rounded Scapula Posture (L) Protracted,(R) Protracted Arm Posture (L) Internally Rotated,(R) Internally Rotated Palpation Assessment Location UT, LS, rhomboids Palpation Location right Palpation Findings Soft Tissue Tightness,Muscle Guarding,Trigger Point PT-OP-K Range of Motion Start: 04/28/20 16:36 Freq: Status: Active Protocol: Document 05/02/20 09:05 [facility] (Rec: 05/03/20 08:59 [facility] [id number]) Cervical Spine Range of Motion Cervical Spine Active Degrees Flexion 55 Extension 40 Rotation Left 55 Rotation Right 70 Lateral Flexion Left 40 Lateral Flexion Right 55 ROM Limitations Soft Tissue Tightness Shoulder Goniometric Range of Motion Shoulder Right Flexion 142 Extension 24 Abduction 135 External Rotation at 45 degrees 55 Abduction Internal Rotation Behind Back (text) L1 Left Active Shoulder ROM WFL Yes Testing Position Sitting Shoulder ROM Limitations Shoulder ROM Limitations Soft Tissue Tightness PT-OP-M Strength Start: 04/28/20 16:36 Freq: Status: Active Protocol: Document 05/02/20 09:05 [facility] (Rec: 05/03/20 08:59 [facility] [id number]) Shoulder Strength Shoulder Manual Muscle Testing Right Flexion 4 Good Extension 4 Good Abduction (C5) 4 Good External Rotation 4- Good- Internal Rotation 4- Good- Left Flexion 5 Normal Extension 5 Normal Abduction (C5) 4+ Good+ External Rotation 4+ Good+ Internal Rotation 4+ Good+ PT-OP-N Lymphedema Start: 04/28/20 16:36 Freq: Status: Active Protocol: Document 05/02/20 09:05 [facility] (Rec: 05/03/20 08:59 [facility] [id number]) Lymphedema Measurements Upper Extremity Circumference Measurements right MCP 22 cm Wrist 17.3 cm 5 cm From Distal Crease 17.6 cm 10 cm From Distal Crease 20.7 cm 15 cm From Distal Crease 23.6 cm 20 cm From Distal Crease 24.7 cm 25 cm From Distal Crease 25.8 cm 30 cm From Distal Crease 27.7 cm 35 cm From Distal Crease 28.8 cm 40 cm From Distal Crease 30.7 cm 45 cm From Distal Crease 38.3 cm Left MCP 19.8 cm Wrist 17.5 cm 5 cm From Distal Crease 17.4 cm 10 cm From Distal Crease 19.8 cm 15 cm From Distal Crease 22.7 cm 20 cm From Distal Crease 24.4 cm 25 cm From Distal Crease 25.5 cm 30 cm From Distal Crease 26.5 cm 35 cm From Distal Crease 27.6 cm 40 cm From Distal Crease 30.9 cm 45 cm From Distal Crease 37.3 cm Comments Lymphedema Comments Patient is right handed PT-OP-Q Treatments Start: 04/28/20 16:36 Freq: Status: Active Protocol: Document 05/16/20 09:01 [facility] (Rec: 05/16/20 09:23 [facility] [id number]) Therapeutic Exercises Supine Exercises shoulder flex Reps/Minutes 5x Comments with end-range stretch serratus punch Reps/Minutes 10x Sitting Exercises upper trap stretch Reps/Minutes 2x ea side Comments hand under chair, mirror for visual feedback deep breathing Reps/Minutes 5x2 Comments abdominal, chest. Pt. hands for manual cues pulleys Sitting Exercise Name shoulder flex Reps/Minutes 6x Manual Therapy Treatment Joint Mobilizations scapulothoracic Direction retraction, upward rotation Taping 1 Body Location right anterior chest Treatment Focus edema reduction, pain reduction Type of Tape kinesiotape Skin Inspection intact Comments edema reduction right breast; 2 fan strips base at supraclavicular fossa, strips down onto superior breast Manual Techniques MLD Body Location right subaxillary area and breast Body Position Supine Reps/Duration 12 min Self-Care/Home Management Treatment Education Other Education don't push into pain PT-OP-T Assessment and Plan Start: 04/28/20 16:36 Freq: Status: Active Protocol: Document 05/16/20 09:01 EFRAÍN (Rec: 05/16/20 09:23 EFRAÍN [id number]) Physical Therapy Assessment Goals 3 Impairment decreased right shoulder strength Short Term Goal (STG) Patient will be independent with HEP for purposes of right shoulder strengthening STG Duration 07/04/20 Skilled Nursing Goal (LTG) Patient will demonstrate 5/5 strength right shoulder LTG Duration 08/01/20 2 Impairment difficulty reaching overhead and behind her back Short Term Goal (STG) Patient will be independent with HEP for purposes of right shoulder ROM Director Of Pulmonary Unit Goal (LTG) Patient will demonstrate full ROM of her right shoulder to allow her to reach overhead and behind her back for all ADL's and usual activities around the home LTG Duration 08/01/20 1 Impairment pain right axilla, posterior shoulder, scapular region Short Term Goal (STG) Decrease pain by at least 50% Director Of Pulmonary Unit Goal (LTG) Decrease pain by at least 75% with all usual activities LTG Duration 08/01/20 Assessment Summary Assessment Increased soreness possibly due to patient pushing too hard with exercises, cued for ex in pain-free ROM, further deep breathing training today with improved ability to perform diaphragmatic breathing. anterior chest remains exquisitely tender. Trial MLD and kinesiotape for edema reduction. Also recommended trial compression right subaxillary area and breast via sports bra and shapewear. Physical Therapy Plan Frequency and Duration Frequency of Treatment 2x/Week Duration of Treatment 12 weeks Plan of Care Start Date 05/02/20 Plan of Care End Date 08/01/20 Next Visit Focus/Plan Next Note Type Treatment Note Next Visit Plan assess response to fan-shaped kinesiotape technique, modified exercise MLD. Continue PT per POC.
--- NOTE | 2020-05-25 10:25 | PT.OTN ---
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 female breast (05/25/20) Estrogen receptor positive status [ER+] (05/25/20) Physical Therapy Treatment Note PT-OP-A Visit Information Start: 04/28/20 16:36 Freq: Status: Active Protocol: Document 05/25/20 09:04 SAK (Rec: 05/25/20 09:13 SAK [id number]) Out-Patient Physical Therapy Visit Information Visit Information Visit Type Treatment Note Visit Start Time 09:00 Visit Stop Time 09:46 Total Visit Minutes 53 Visit Number 4 Evaluation Information Evaluation Date 05/02/20 PT-OP-B Current Condition Start: 04/28/20 16:36 Freq: Status: Active Protocol: Document 05/11/20 09:00 SAK (Rec: 05/11/20 09:57 SAK [id number]) Current Condition History of Current Condition Onset Date 6 mo+ Current Complaints pain right axilla, posterior shoulder/shoulder blade History of Current Condition Patient reports gripping pain right armpit, and posterior shoulder, anterior chest; lumpectomy and radiation finished 2 years ago. 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 Couldn't tolerate medications prescribed , states couldn't get out of bed, so no active treatment at this time. Tried to get in for PT right about time Covid shut things down. Takes Alleve (mostly for thumb pain), hasn't changed her pain. Had friend give her post mastectomy exercises, but didn't seem to help. States she feels her shoulder ROM is getting worse. The pain is unpredictable, can do yardwork without pain. Pain is variable, can come on at any time. Denies redness, warmth, swelling. Prior Treatments and Tests recent mammogram negative PT-OP-C Subjective Start: 05/03/20 08:37 Freq: Status: Active Protocol: Document 05/25/20 09:04 SAK (Rec: 05/25/20 09:13 SAK [id number]) OP-PT Subjective Patient Comments Patient Comments Kinesiotape caused blistering, had to remove day after PT. Pain not really changed, does feel more swelling on right lateral chest wall; though admits to stopping doing exercises after she overdid it. PT-OP-E Functional Tests Start: 04/28/20 16:36 Freq: Status: Active Protocol: Document 05/02/20 09:05 [facility] (Rec: 05/03/20 08:59 [facility] [id number]) Functional Tests Apley's Scratch Test Action 1- Left posterior shoulder Action 1- Right anterior shoulder Action 2- Left T2 Action 2- Right posterior ear Action 3- Left T7 Action 3- Right L1 PT-OP-F Manual Assessment Start: 04/28/20 16:36 Freq: Status: Active Protocol: Document 05/02/20 09:05 SAK (Rec: 05/03/20 08:59 [facility] [id number]) Manual Assessments Soft Tissue Assessment Soft Tissue Mobility Assessment increased soft tissue tightness right upper trap, levator scap, rhomboids PT-OP-J Posture/Palpation/Skin Start: 04/28/20 16:36 Freq: Status: Active Protocol: Document 05/02/20 09:05 [facility] (Rec: 05/03/20 08:59 [facility] [id number]) Posture Evaluation Position Sitting Head/C-Spine Posture Forward Head T-Spine Posture Increased Kyphosis Shoulder Posture (L) Rounded Scapula Posture (L) Protracted,(R) Protracted Arm Posture (L) Internally Rotated,(R) Internally Rotated Palpation Assessment Location UT, LS, rhomboids Palpation Location right Palpation Findings Soft Tissue Tightness,Muscle Guarding,Trigger Point PT-OP-K Range of Motion Start: 04/28/20 16:36 Freq: Status: Active Protocol: Document 05/02/20 09:05 SAK (Rec: 05/03/20 08:59 [facility] [id number]) Cervical Spine Range of Motion Cervical Spine Active Degrees Flexion 55 Extension 40 Rotation Left 55 Rotation Right 70 Lateral Flexion Left 40 Lateral Flexion Right 55 ROM Limitations Soft Tissue Tightness Shoulder Goniometric Range of Motion Shoulder Right Flexion 142 Extension 24 Abduction 135 External Rotation at 45 degrees 55 Abduction Internal Rotation Behind Back (text) L1 Left Active Shoulder ROM WFL Yes Testing Position Sitting Shoulder ROM Limitations Shoulder ROM Limitations Soft Tissue Tightness PT-OP-M Strength Start: 04/28/20 16:36 Freq: Status: Active Protocol: Document 05/02/20 09:05 SAK (Rec: 05/03/20 08:59 [facility] [id number]) Shoulder Strength Shoulder Manual Muscle Testing Right Flexion 4 Good Extension 4 Good Abduction (C5) 4 Good External Rotation 4- Good- Internal Rotation 4- Good- Left Flexion 5 Normal Extension 5 Normal Abduction (C5) 4+ Good+ External Rotation 4+ Good+ Internal Rotation 4+ Good+ PT-OP-N Lymphedema Start: 04/28/20 16:36 Freq: Status: Active Protocol: Document 05/02/20 09:05 [facility] (Rec: 05/03/20 08:59 [facility] [id number]) Lymphedema Measurements Upper Extremity Circumference Measurements right MCP 22 cm Wrist 17.3 cm 5 cm From Distal Crease 17.6 cm 10 cm From Distal Crease 20.7 cm 15 cm From Distal Crease 23.6 cm 20 cm From Distal Crease 24.7 cm 25 cm From Distal Crease 25.8 cm 30 cm From Distal Crease 27.7 cm 35 cm From Distal Crease 28.8 cm 40 cm From Distal Crease 30.7 cm 45 cm From Distal Crease 38.3 cm Left MCP 19.8 cm Wrist 17.5 cm 5 cm From Distal Crease 17.4 cm 10 cm From Distal Crease 19.8 cm 15 cm From Distal Crease 22.7 cm 20 cm From Distal Crease 24.4 cm 25 cm From Distal Crease 25.5 cm 30 cm From Distal Crease 26.5 cm 35 cm From Distal Crease 27.6 cm 40 cm From Distal Crease 30.9 cm 45 cm From Distal Crease 37.3 cm Comments Lymphedema Comments Patient is right handed PT-OP-Q Treatments Start: 04/28/20 16:36 Freq: Status: Active Protocol: Document 05/25/20 09:04 [facility] (Rec: 05/25/20 10:25 [facility] [id number]) Therapeutic Exercises Sidelying Exercises shoulder abduction from 90 Reps/Minutes 5x Comments manual scapular rotation with pt. active shoulder movement; gentle open book Sidelying Exercise Name arm at side Reps/Minutes 5x Comments verbal and manual cues for segmental movement, deep breathing into tight ar Manual Therapy Treatment Soft Tissue Mobilization periscapular region Mobilization Type Myofascial Release,Rolling Joint Mobilizations thoracic Joint T3-T6 lateral nash Direction PA Comments plus global PA thoracic mobilization with deep breathing scapulothoracic Direction retraction, upward rotation, protraction, retraction Taping 1 Comments Not done due to skin breakdown Self-Care/Home Management Treatment Education Patient Education Home Exercise Program Other Education resume in pain-free, gentle ROM Discussed swelling lateral right breast and chest; given chip bag for use in bra, shown swell spots and given information for looking at options online, discussed appropriate bra and shapwear for compression right breast with options shown. PT-OP-T Assessment and Plan Start: 04/28/20 16:36 Freq: Status: Active Protocol: Document 05/25/20 09:04 [facility] (Rec: 05/25/20 09:13 [facility] [id number]) Physical Therapy Assessment Goals 3 Impairment decreased right shoulder strength Short Term Goal (STG) Patient will be independent with HEP for purposes of right shoulder strengthening STG Duration 07/04/20 [employer] Goal (LTG) Patient will demonstrate 5/5 strength right shoulder LTG Duration 08/01/20 2 Impairment difficulty reaching overhead and behind her back Short Term Goal (STG) Patient will be independent with HEP for purposes of right shoulder ROM [employer] Goal (LTG) Patient will demonstrate full ROM of her right shoulder to allow her to reach overhead and behind her back for all ADL's and usual activities around the home LTG Duration 08/01/20 1 Impairment pain right axilla, posterior shoulder, scapular region Short Term Goal (STG) Decrease pain by at least 50% Custodial Goal (LTG) Decrease pain by at least 75% with all usual activities LTG Duration 08/01/20 Assessment Summary Assessment Patient instructed to resume her therapeutic exercise program, pain-free ROM as previously instructed. Tolerated posterior thoracic mobilization (increased tightness T4-6) scapular mobilization and soft tissue mobilization well today. Patient education provided regarding edema management, issued chip bag for use in her bra and given information about swell spots, compression bras. Physical Therapy Plan Frequency and Duration Frequency of Treatment 2x/Week Duration of Treatment 12 weeks Plan of Care Start Date 05/02/20 Plan of Care End Date 08/01/20 Next Visit Focus/Plan Next Note Type Treatment Note Next Visit Plan Assess response to today's treatment, MFR subaxillary region, possible anterior thoracic mobilization as tolerated.
--- NOTE | 2020-05-30 13:53 | PT.OTN ---
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 female breast (05/30/20) Estrogen receptor positive status [ER+] (05/30/20) Physical Therapy Treatment Note PT-OP-A Visit Information Start: 04/28/20 16:36 Freq: Status: Active Protocol: Document 05/30/20 08:11 SAK (Rec: 05/30/20 08:24 SAK [id number]) Out-Patient Physical Therapy Visit Information Visit Information Visit Type Treatment Note Visit Start Time 08:15 Visit Stop Time 09:00 Total Visit Minutes 45 Visit Number 3 Evaluation Information Evaluation Date 05/02/20 PT-OP-B Current Condition Start: 04/28/20 16:36 Freq: Status: Active Protocol: Document 05/11/20 09:00 SAK (Rec: 05/11/20 09:57 SAK [id number]) Current Condition History of Current Condition Onset Date 6 mo+ Current Complaints pain right axilla, posterior shoulder/shoulder blade History of Current Condition Patient reports gripping pain right armpit, and posterior shoulder, anterior chest; lumpectomy and radiation finished 2 years ago. 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 Couldn't tolerate medications prescribed , states couldn't get out of bed, so no active treatment at this time. Tried to get in for PT right about time Covid shut things down. Takes Alleve (mostly for thumb pain), hasn't changed her pain. Had friend give her post mastectomy exercises, but didn't seem to help. States she feels her shoulder ROM is getting worse. The pain is unpredictable, can do yardwork without pain. Pain is variable, can come on at any time. Denies redness, warmth, swelling. Prior Treatments and Tests recent mammogram negative PT-OP-C Subjective Start: 05/03/20 08:37 Freq: Status: Active Protocol: Document 05/30/20 08:11 SAK (Rec: 05/30/20 08:24 SAK [id number]) OP-PT Subjective Patient Comments Patient Comments States while wearing the chip bag felt better, wasn't needing to guard as much. Scapular region looser, subaxillary area still tight. PT-OP-E Functional Tests Start: 04/28/20 16:36 Freq: Status: Active Protocol: Document 05/02/20 09:05 [facility] (Rec: 05/03/20 08:59 [facility] [id number]) Functional Tests Apley's Scratch Test Action 1- Left posterior shoulder Action 1- Right anterior shoulder Action 2- Left T2 Action 2- Right posterior ear Action 3- Left T7 Action 3- Right L1 PT-OP-F Manual Assessment Start: 04/28/20 16:36 Freq: Status: Active Protocol: Document 05/02/20 09:05 [facility] (Rec: 05/03/20 08:59 [facility] [id number]) Manual Assessments Soft Tissue Assessment Soft Tissue Mobility Assessment increased soft tissue tightness right upper trap, levator scap, rhomboids PT-OP-J Posture/Palpation/Skin Start: 04/28/20 16:36 Freq: Status: Active Protocol: Document 05/02/20 09:05 [facility] (Rec: 05/03/20 08:59 [facility] [id number]) Posture Evaluation Position Sitting Head/C-Spine Posture Forward Head T-Spine Posture Increased Kyphosis Shoulder Posture (L) Rounded Scapula Posture (L) Protracted,(R) Protracted Arm Posture (L) Internally Rotated,(R) Internally Rotated Palpation Assessment Location UT, LS, rhomboids Palpation Location right Palpation Findings Soft Tissue Tightness,Muscle Guarding,Trigger Point PT-OP-K Range of Motion Start: 04/28/20 16:36 Freq: Status: Active Protocol: Document 05/02/20 09:05 [facility] (Rec: 05/03/20 08:59 [facility] [id number]) Cervical Spine Range of Motion Cervical Spine Active Degrees Flexion 55 Extension 40 Rotation Left 55 Rotation Right 70 Lateral Flexion Left 40 Lateral Flexion Right 55 ROM Limitations Soft Tissue Tightness Shoulder Goniometric Range of Motion Shoulder Right Flexion 142 Extension 24 Abduction 135 External Rotation at 45 degrees 55 Abduction Internal Rotation Behind Back (text) L1 Left Active Shoulder ROM WFL Yes Testing Position Sitting Shoulder ROM Limitations Shoulder ROM Limitations Soft Tissue Tightness PT-OP-M Strength Start: 04/28/20 16:36 Freq: Status: Active Protocol: Document 05/02/20 09:05 [facility] (Rec: 05/03/20 08:59 [facility] [id number]) Shoulder Strength Shoulder Manual Muscle Testing Right Flexion 4 Good Extension 4 Good Abduction (C5) 4 Good External Rotation 4- Good- Internal Rotation 4- Good- Left Flexion 5 Normal Extension 5 Normal Abduction (C5) 4+ Good+ External Rotation 4+ Good+ Internal Rotation 4+ Good+ PT-OP-N Lymphedema Start: 04/28/20 16:36 Freq: Status: Active Protocol: Document 05/02/20 09:05 [facility] (Rec: 05/03/20 08:59 [facility] [id number]) Lymphedema Measurements Upper Extremity Circumference Measurements right MCP 22 cm Wrist 17.3 cm 5 cm From Distal Crease 17.6 cm 10 cm From Distal Crease 20.7 cm 15 cm From Distal Crease 23.6 cm 20 cm From Distal Crease 24.7 cm 25 cm From Distal Crease 25.8 cm 30 cm From Distal Crease 27.7 cm 35 cm From Distal Crease 28.8 cm 40 cm From Distal Crease 30.7 cm 45 cm From Distal Crease 38.3 cm Left MCP 19.8 cm Wrist 17.5 cm 5 cm From Distal Crease 17.4 cm 10 cm From Distal Crease 19.8 cm 15 cm From Distal Crease 22.7 cm 20 cm From Distal Crease 24.4 cm 25 cm From Distal Crease 25.5 cm 30 cm From Distal Crease 26.5 cm 35 cm From Distal Crease 27.6 cm 40 cm From Distal Crease 30.9 cm 45 cm From Distal Crease 37.3 cm Comments Lymphedema Comments Patient is right handed PT-OP-Q Treatments Start: 04/28/20 16:36 Freq: Status: Active Protocol: Document 05/30/20 08:11 [facility] (Rec: 05/30/20 08:24 [facility] [id number]) Therapeutic Exercises Supine Exercises deep breathing Reps/Minutes 10x Comments into anterior and lateral thoracic region Sidelying Exercises deep breathing Reps/Minutes 10x Comments into anterior and lateral thoracic region shoulder abduction from 90 Reps/Minutes 5x Comments manual scapular rotation with pt. active shoulder movement; gentle Manual Therapy Treatment Soft Tissue Mobilization subaxillary6 Comments supine and sidelying Taping 1 Comments Not done due to skin breakdown Manual Techniques MWM Comments with shoulder flexion, pin and stretch in lats MFR Body Location subaxillary, upper thoracic region Self-Care/Home Management Treatment Education Other Education self massage using tennis ball PT-OP-T Assessment and Plan Start: 04/28/20 16:36 Freq: Status: Active Protocol: Document 05/30/20 08:11 [facility] (Rec: 05/30/20 08:24 [facility] [id number]) Physical Therapy Assessment Goals 3 Impairment decreased right shoulder strength Short Term Goal (STG) Patient will be independent with HEP for purposes of right shoulder strengthening STG Duration 07/04/20 Group Home Goal (LTG) Patient will demonstrate 5/5 strength right shoulder LTG Duration 08/01/20 2 Impairment difficulty reaching overhead and behind her back Short Term Goal (STG) Patient will be independent with HEP for purposes of right shoulder ROM [employer] Professor Goal (LTG) Patient will demonstrate full ROM of her right shoulder to allow her to reach overhead and behind her back for all ADL's and usual activities around the home LTG Duration 08/01/20 1 Impairment pain right axilla, posterior shoulder, scapular region Short Term Goal (STG) Decrease pain by at least 50% Group Home Goal (LTG) Decrease pain by at least 75% with all usual activities LTG Duration 08/01/20 Assessment Summary Assessment Patient reported wearing chip bag in bra was helpful to her arm when walking; didn't have to hold under her arm as she usually does toward the end of her walks; has ordered Swell Spot as recommended. Fair tolerance for MFR subaxillary region. Physical Therapy Plan Frequency and Duration Frequency of Treatment 2x/Week Duration of Treatment 12 weeks Plan of Care Start Date 05/02/20 Plan of Care End Date 08/01/20 Next Visit Focus/Plan Next Note Type Treatment Note Next Visit Plan ASsess response to today's treatment. Continue manual techniques, ther ex, edema mangement, .
--- NOTE | 2020-06-09 15:48 | PT.OTN ---
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 female breast (06/09/20) Estrogen receptor positive status [ER+] (06/09/20) Physical Therapy Treatment Note PT-OP-A Visit Information Start: 04/28/20 16:36 Freq: Status: Active Protocol: Document 06/09/20 15:42 SAK (Rec: 06/09/20 15:48 SAK [id number]) Out-Patient Physical Therapy Visit Information Visit Information Visit Type Treatment Note Visit Start Time 08:15 Visit Stop Time 09:00 Total Visit Minutes 45 Visit Number 6 Evaluation Information Evaluation Date 05/02/20 PT-OP-B Current Condition Start: 04/28/20 16:36 Freq: Status: Active Protocol: Document 05/11/20 09:00 SAK (Rec: 05/11/20 09:57 SAK [id number]) Current Condition History of Current Condition Onset Date 6 mo+ Current Complaints pain right axilla, posterior shoulder/shoulder blade History of Current Condition Patient reports gripping pain right armpit, and posterior shoulder, anterior chest; lumpectomy and radiation finished 2 years ago. 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 Couldn't tolerate medications prescribed , states couldn't get out of bed, so no active treatment at this time. Tried to get in for PT right about time Covid shut things down. Takes Alleve (mostly for thumb pain), hasn't changed her pain. Had friend give her post mastectomy exercises, but didn't seem to help. States she feels her shoulder ROM is getting worse. The pain is unpredictable, can do yardwork without pain. Pain is variable, can come on at any time. Denies redness, warmth, swelling. Prior Treatments and Tests recent mammogram negative PT-OP-C Subjective Start: 05/03/20 08:37 Freq: Status: Active Protocol: Document 06/09/20 15:42 SAK (Rec: 06/09/20 15:48 SAK [id number]) OP-PT Subjective Patient Comments Patient Comments Obtained ab Hiness PT assessment. Pain persistent but improved, ROM improved with increased ability to reach overhead. PT-OP-E Functional Tests Start: 04/28/20 16:36 Freq: Status: Active Protocol: Document 05/02/20 09:05 SAK (Rec: 05/03/20 08:59 [facility] [id number]) Functional Tests Apley's Scratch Test Action 1- Left posterior shoulder Action 1- Right anterior shoulder Action 2- Left T2 Action 2- Right posterior ear Action 3- Left T7 Action 3- Right L1 PT-OP-F Manual Assessment Start: 04/28/20 16:36 Freq: Status: Active Protocol: Document 05/02/20 09:05 [facility] (Rec: 05/03/20 08:59 [facility] [id number]) Manual Assessments Soft Tissue Assessment Soft Tissue Mobility Assessment increased soft tissue tightness right upper trap, levator scap, rhomboids PT-OP-J Posture/Palpation/Skin Start: 04/28/20 16:36 Freq: Status: Active Protocol: Document 05/02/20 09:05 [facility] (Rec: 05/03/20 08:59 [facility] [id number]) Posture Evaluation Position Sitting Head/C-Spine Posture Forward Head T-Spine Posture Increased Kyphosis Shoulder Posture (L) Rounded Scapula Posture (L) Protracted,(R) Protracted Arm Posture (L) Internally Rotated,(R) Internally Rotated Palpation Assessment Location UT, LS, rhomboids Palpation Location right Palpation Findings Soft Tissue Tightness,Muscle Guarding,Trigger Point PT-OP-K Range of Motion Start: 04/28/20 16:36 Freq: Status: Active Protocol: Document 05/02/20 09:05 [facility] (Rec: 05/03/20 08:59 [facility] [id number]) Cervical Spine Range of Motion Cervical Spine Active Degrees Flexion 55 Extension 40 Rotation Left 55 Rotation Right 70 Lateral Flexion Left 40 Lateral Flexion Right 55 ROM Limitations Soft Tissue Tightness Shoulder Goniometric Range of Motion Shoulder Right Flexion 142 Extension 24 Abduction 135 External Rotation at 45 degrees 55 Abduction Internal Rotation Behind Back (text) L1 Left Active Shoulder ROM WFL Yes Testing Position Sitting Shoulder ROM Limitations Shoulder ROM Limitations Soft Tissue Tightness PT-OP-M Strength Start: 04/28/20 16:36 Freq: Status: Active Protocol: Document 05/02/20 09:05 [facility] (Rec: 05/03/20 08:59 [facility] [id number]) Shoulder Strength Shoulder Manual Muscle Testing Right Flexion 4 Good Extension 4 Good Abduction (C5) 4 Good External Rotation 4- Good- Internal Rotation 4- Good- Left Flexion 5 Normal Extension 5 Normal Abduction (C5) 4+ Good+ External Rotation 4+ Good+ Internal Rotation 4+ Good+ PT-OP-N Lymphedema Start: 04/28/20 16:36 Freq: Status: Active Protocol: Document 05/02/20 09:05 SAK (Rec: 05/03/20 08:59 [facility] [id number]) Lymphedema Measurements Upper Extremity Circumference Measurements right MCP 22 cm Wrist 17.3 cm 5 cm From Distal Crease 17.6 cm 10 cm From Distal Crease 20.7 cm 15 cm From Distal Crease 23.6 cm 20 cm From Distal Crease 24.7 cm 25 cm From Distal Crease 25.8 cm 30 cm From Distal Crease 27.7 cm 35 cm From Distal Crease 28.8 cm 40 cm From Distal Crease 30.7 cm 45 cm From Distal Crease 38.3 cm Left MCP 19.8 cm Wrist 17.5 cm 5 cm From Distal Crease 17.4 cm 10 cm From Distal Crease 19.8 cm 15 cm From Distal Crease 22.7 cm 20 cm From Distal Crease 24.4 cm 25 cm From Distal Crease 25.5 cm 30 cm From Distal Crease 26.5 cm 35 cm From Distal Crease 27.6 cm 40 cm From Distal Crease 30.9 cm 45 cm From Distal Crease 37.3 cm Comments Lymphedema Comments Patient is right handed PT-OP-Q Treatments Start: 04/28/20 16:36 Freq: Status: Active Protocol: Document 06/09/20 15:42 SAK (Rec: 06/09/20 15:48 [facility] [id number]) Therapeutic Exercises Supine Exercises deep breathing Reps/Minutes 10x Comments into anterior and lateral thoracic region Sidelying Exercises deep breathing Reps/Minutes 10x Comments into anterior and lateral thoracic region shoulder abduction from 90 Reps/Minutes 5x Comments manual scapular rotation with pt. active shoulder movement; gentle Manual Therapy Treatment Manual Techniques MWM Comments with shoulder flexion, pin and stretch in lats MFR Body Location subaxillary, upper thoracic region Lymphedema Treatment Manual Lymphatic Drainage Location right breast, subaxillary region Comments with patient education for self-massage, given information for online video for review ([facility]) PT-OP-T Assessment and Plan Start: 04/28/20 16:36 Freq: Status: Active Protocol: Document 06/09/20 15:42 SAK (Rec: 11/19/20 15:48 [facility] [id number]) Physical Therapy Assessment Goals 3 Impairment decreased right shoulder strength Short Term Goal (STG) Patient will be independent with HEP for purposes of right shoulder strengthening STG Duration 07/04/20 Health Services Director Goal (LTG) Patient will demonstrate 5/5 strength right shoulder LTG Duration 08/01/20 2 Impairment difficulty reaching overhead and behind her back Short Term Goal (STG) Patient will be independent with HEP for purposes of right shoulder ROM Health Services Director Goal (LTG) Patient will demonstrate full ROM of her right shoulder to allow her to reach overhead and behind her back for all ADL's and usual activities around the home LTG Duration 08/01/20 1 Impairment pain right axilla, posterior shoulder, scapular region Short Term Goal (STG) Decrease pain by at least 50% Long-Term Goal (LTG) Decrease pain by at least 75% with all usual activities LTG Duration 08/01/20 Assessment Summary Assessment obtained swell spot which appears of appropriate size. circumferential measurements either decreased or stable right side. Comfortable and independent with HEP. Overall pain improved. Demonstrates good understanding of self care. Physical Therapy Plan Frequency and Duration Frequency of Treatment 2x/Week Duration of Treatment 12 weeks Plan of Care Start Date 05/02/20 Plan of Care End Date 08/01/20 Next Visit Focus/Plan Next Note Type Treatment Note Next Visit Plan Follow up appointment in 1 month to assess if continued progress with self management or need for further skilled PT . Patient was issue information for contacting PT with any questions.
--- NOTE | 2020-11-21 08:33 | PT.OPDS ---
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 female breast (06/09/20) Estrogen receptor positive status [ER+] (06/09/20) Visit Care Team Role Provider Type Lourdes Heredia DO Primary Care Provider Physician Specialty: Family Practice Address: [facility] [facility], [address], [place], [address] Email: [email or web address] MD Attending Provider Non-Staff Referring Provider Specialty: Radiology Address: [address] [place] [address], [place], [address] Email: Visit Number Visit Number 6 Discharge Summary PT-OP-B Current Condition Start: 04/28/20 16:36 Freq: Status: Active Protocol: Document 05/11/20 09:00 SAK (Rec: 05/11/20 09:57 [facility]AK [id number]) Current Condition History of Current Condition Onset Date 6 mo+ Current Complaints pain right axilla, posterior shoulder/shoulder blade History of Current Condition Patient reports gripping pain right armpit, and posterior shoulder, anterior chest; lumpectomy and radiation finished 2 years ago. 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 Couldn't tolerate medications prescribed , states couldn't get out of bed, so no active treatment at this time. Tried to get in for PT right about time Covid shut things down. Takes Alleve (mostly for thumb pain), hasn't changed her pain. Had friend give her post mastectomy exercises, but didn't seem to help. States she feels her shoulder ROM is getting worse. The pain is unpredictable, can do yardwork without pain. Pain is variable, can come on at any time. Denies redness, warmth, swelling. Prior Treatments and Tests recent mammogram negative PT-OP-C Subjective Start: 05/03/20 08:37 Freq: Status: Active Protocol: Document 06/09/20 15:42 SAK (Rec: 06/09/20 15:48 [facility] [id number]) OP-PT Subjective Patient Comments Patient Comments Obtained Swell Spot, wants PT assessment. Pain persistent but improved, ROM improved with increased ability to reach overhead. PT-OP-E Functional Tests Start: 04/28/20 16:36 Freq: Status: Active Protocol: Document 05/02/20 09:05 SAK (Rec: 05/03/20 08:59 [facility] [id number]) Functional Tests Apley's Scratch Test Action 1- Left posterior shoulder Action 1- Right anterior shoulder Action 2- Left T2 Action 2- Right posterior ear Action 3- Left T7 Action 3- Right L1 PT-OP-F Manual Assessment Start: 04/28/20 16:36 Freq: Status: Active Protocol: Document 05/02/20 09:05 SAK (Rec: 05/03/20 08:59 [facility] [id number]) Manual Assessments Soft Tissue Assessment Soft Tissue Mobility Assessment increased soft tissue tightness right upper trap, levator scap, rhomboids PT-OP-J Posture/Palpation/Skin Start: 04/28/20 16:36 Freq: Status: Active Protocol: Document 05/02/20 09:05 SAK (Rec: 05/03/20 08:59 [facility] [id number]) Posture Evaluation Position Sitting Head/C-Spine Posture Forward Head T-Spine Posture Increased Kyphosis Shoulder Posture (L) Rounded Scapula Posture (L) Protracted,(R) Protracted Arm Posture (L) Internally Rotated,(R) Internally Rotated Palpation Assessment Location UT, LS, rhomboids Palpation Location right Palpation Findings Soft Tissue Tightness,Muscle Guarding,Trigger Point PT-OP-K Range of Motion Start: 04/28/20 16:36 Freq: Status: Active Protocol: Document 05/02/20 09:05 SAK (Rec: 05/03/20 08:59 [facility] [id number]) Cervical Spine Range of Motion Cervical Spine Active Degrees Flexion 55 Extension 40 Rotation Left 55 Rotation Right 70 Lateral Flexion Left 40 Lateral Flexion Right 55 ROM Limitations Soft Tissue Tightness Shoulder Goniometric Range of Motion Shoulder Right Flexion 142 Extension 24 Abduction 135 External Rotation at 45 degrees 55 Abduction Internal Rotation Behind Back (text) L1 Left Active Shoulder ROM WFL Yes Testing Position Sitting Shoulder ROM Limitations Shoulder ROM Limitations Soft Tissue Tightness PT-OP-M Strength Start: 04/28/20 16:36 Freq: Status: Active Protocol: Document 05/02/20 09:05 SAK (Rec: 05/03/20 08:59 [facility] [id number]) Shoulder Strength Shoulder Manual Muscle Testing Right Flexion 4 Good Extension 4 Good Abduction (C5) 4 Good External Rotation 4- Good- Internal Rotation 4- Good- Left Flexion 5 Normal Extension 5 Normal Abduction (C5) 4+ Good+ External Rotation 4+ Good+ Internal Rotation 4+ Good+ PT-OP-N Lymphedema Start: 04/28/20 16:36 Freq: Status: Active Protocol: Document 05/02/20 09:05 [facility] (Rec: 05/03/20 08:59 [facility] [id number]) Lymphedema Measurements Upper Extremity Circumference Measurements right MCP 22 cm Wrist 17.3 cm 5 cm From Distal Crease 17.6 cm 10 cm From Distal Crease 20.7 cm 15 cm From Distal Crease 23.6 cm 20 cm From Distal Crease 24.7 cm 25 cm From Distal Crease 25.8 cm 30 cm From Distal Crease 27.7 cm 35 cm From Distal Crease 28.8 cm 40 cm From Distal Crease 30.7 cm 45 cm From Distal Crease 38.3 cm Left MCP 19.8 cm Wrist 17.5 cm 5 cm From Distal Crease 17.4 cm 10 cm From Distal Crease 19.8 cm 15 cm From Distal Crease 22.7 cm 20 cm From Distal Crease 24.4 cm 25 cm From Distal Crease 25.5 cm 30 cm From Distal Crease 26.5 cm 35 cm From Distal Crease 27.6 cm 40 cm From Distal Crease 30.9 cm 45 cm From Distal Crease 37.3 cm Comments Lymphedema Comments Patient is right handed PT-OP-T Assessment and Plan Start: 04/28/20 16:36 Freq: Status: Active Protocol: Document 11/21/20 08:32 [facility] (Rec: 11/21/20 08:33 [facility] [id number]) Physical Therapy Plan Discharge Physical Therapy Discharge Reasons No Longer Attending PT
== END 2020-11-25 09:15 | disposition home or self-care (01) ==
LOC: PHYS 09:45
PROVIDERS: PCP Family Medicine; Referring Provider Radiology Radiation Oncology; Visit Provider Radiology Radiation Oncology
DX: C50.411 Malignant neoplasm of upper-outer quadrant of right female breast (principal); Z17.0 Estrogen receptor positive status [ER+]
CPT/HCPCS: 97110; 97140; 97162; 97535

== ENCOUNTER → 2020-06-22 08:30 | Outpatient (CLI) | payer MEDICARE, OTHER, SELFPAY ==
[2020-06-22 09:03] LABS: Add Manual Diff / Slide Review NO; Basophils Absolute Auto 100 /uL (0-100); Basophils Percent Auto 1.4 % (0-2); Eosinophils Absolute Auto 100 /uL (0-450); Eosinophils Percent Auto 2.7 % (2-4); Hematocrit 41.5 % (36-46); Hemoglobin 13.8 g/dL (12.0-16.0); Lymphocytes Absolute Auto 1600 /uL (1100-4500); Lymphocytes Percent Auto 43.9 % (25-40); Mean Corpuscular HGB Conc 33.3 % (30-36); Mean Corpuscular Hemoglobin 32.2 PG (26-34); Mean Corpuscular Volume 96.6 fL (80-100); Monocytes Absolute Auto 400 /uL (0-900); Monocytes Percent Auto 10.9 % (3-14); Neutrophils Absolute Auto 1500 /uL (1500-7000); Neutrophils Percent Auto 41.1 % (50-75); Platelet Count 258 X10^3/uL (150-400); Red Blood Cell Count 4.29 X10^6/uL (4.0-5.2); Red Cell Distribution Width 12.4 % (11.6-14.8); White Blood Cell Count 3.7 X10^3/uL (4.5-11.0)
[2020-06-22 09:31] LABS: Alanine Aminotransferase 20 IU/L (<35); Albumin Globulin Ratio 1.2 (1.0-2.8); Alkaline Phosphatase 77 U/L (38-126); Aspartate Aminotransferase 28 IU/L (14-36); BUN Creatinine Ratio 20.3 (6-22); Bilirubin Total 0.7 mg/dL (0.2-1.3); Blood Urea Nitrogen 25 mg/dL (7-17); Calcium 9.7 mg/dL (8.4-10.2); Carbon Dioxide 32 mmol/L (22-32); Chloride 101 mmol/L (98-107); Cholesterol 251 mg/dL (140-199); Estimated Glomerular Filt Rate 42.3 mL/min (>60); Globulin 3.3 g/dL (1.7-4.1); Glucose 106 mg/dL (80-110); HDL Cholesterol 68 mg/dL (40-60); HEMOLYSIS < 15 (0-50); LDL Cholesterol Calculated 164 mg/dL (<100); Potassium 4.3 mmol/L (3.4-5.1); Sodium 135 mmol/L (137-145); Total Protein 7.3 g/dL (6.3-8.2); Triglycerides 96 mg/dL (35-150)
[2020-06-22 10:00] LABS: TSH w/ Reflex to FT4 1.46 uIU/mL (0.47-4.68)
[2020-06-22 15:28] LABS: Creatinine Urine Random 74.9 mg/dL
[2020-06-22 15:32] LABS: Microalbumin Urine Random < 0.6 mg/dL (0-1.6)
== END ==
PROVIDERS: PCP Family Medicine; Referring Provider Family Medicine; Visit Provider Family Medicine
DX: D05.11 Intraductal carcinoma in situ of right breast (principal); E03.9 Hypothyroidism, unspecified; E78.5 Hyperlipidemia, unspecified; I10 Essential (primary) hypertension
CPT/HCPCS: 36415; 80053; 80061; 82043; 82570; 84443; 85025

== ENCOUNTER → 2021-06-09 09:30 | Outpatient (CLI) | payer MEDICARE, OTHER, SELFPAY ==
[2021-06-09] MEDS: COVID-19 VACC #3, MRNA(MOD) 50 MCG/0.25 ML VIAL IM (09:41)
== END ==
PROVIDERS: PCP Family Medicine; Visit Provider Internal Medicine
DX: Z23 Encounter for immunization (principal)
CPT/HCPCS: 0013A; 91301

== ENCOUNTER → 2021-07-04 08:13 | Outpatient (CLI) | payer MEDICARE, OTHER, SELFPAY ==
[2021-07-04 09:12] LABS: Add Manual Diff / Slide Review NO; Basophils Absolute Auto 0 /uL (0-100); Basophils Percent Auto 1.4 % (0-2); Eosinophils Absolute Auto 100 /uL (0-450); Eosinophils Percent Auto 1.9 % (2-4); Hematocrit 40.5 % (36-46); Hemoglobin 13.9 g/dL (12.0-16.0); Lymphocytes Absolute Auto 1700 /uL (1100-4500); Lymphocytes Percent Auto 46.9 % (25-40); Mean Corpuscular HGB Conc 34.4 % (30-36); Mean Corpuscular Hemoglobin 32.8 PG (26-34); Mean Corpuscular Volume 95.6 fL (80-100); Monocytes Absolute Auto 400 /uL (0-900); Monocytes Percent Auto 10.5 % (3-14); Neutrophils Absolute Auto 1400 /uL (1500-7000); Neutrophils Percent Auto 39.3 % (50-75); Platelet Count 279 X10^3/uL (150-400); Red Blood Cell Count 4.24 X10^6/uL (4.0-5.2); Red Cell Distribution Width 13.3 % (11.6-14.8); White Blood Cell Count 3.6 X10^3/uL (4.5-11.0)
[2021-07-04 09:55] LABS: Alanine Aminotransferase 21 IU/L (<35); Albumin 4.4 g/dL (3.5-5.0); Albumin Globulin Ratio 1.3 (1.0-2.8); Alkaline Phosphatase 67 U/L (38-126); Aspartate Aminotransferase 31 IU/L (14-36); BUN Creatinine Ratio 21.2 (6-22); Bilirubin Total 0.9 mg/dL (0.2-1.3); Blood Urea Nitrogen 28 mg/dL (7-17); Carbon Dioxide 29 mmol/L (22-32); Chloride 102 mmol/L (98-107); Estimated Glomerular Filt Rate 38.9 mL/min (>60); Globulin 3.4 g/dL (1.7-4.1); Glucose 106 mg/dL (80-110); HEMOLYSIS 15 (0-50); Potassium 4.3 mmol/L (3.4-5.1); Sodium 138 mmol/L (137-145); Total Protein 7.8 g/dL (6.3-8.2)
[2021-07-04 10:28] LABS: TSH w/ Reflex to FT4 1.03 uIU/mL (0.47-4.68)
== END ==
PROVIDERS: PCP Family Medicine; Referring Provider Family Medicine; Visit Provider Family Medicine
DX: E03.9 Hypothyroidism, unspecified (principal); D05.11 Intraductal carcinoma in situ of right breast; N18.32 Chronic kidney disease, stage 3b
CPT/HCPCS: 36415; 80053; 84443; 85025

== ENCOUNTER → 2021-09-21 08:41 | Outpatient (CLI) | payer MEDICARE, OTHER, SELFPAY ==
[2021-09-21 10:01] LABS: Add Manual Diff / Slide Review NO; Basophils Absolute Auto 0 /uL (0-100); Basophils Percent Auto 1.2 % (0-2); Eosinophils Absolute Auto 0 /uL (0-450); Eosinophils Percent Auto 1.3 % (2-4); Hematocrit 40.2 % (36-46); Hemoglobin 13.7 g/dL (12.0-16.0); Lymphocytes Absolute Auto 1400 /uL (1100-4500); Lymphocytes Percent Auto 42.2 % (25-40); Mean Corpuscular Hemoglobin 32.7 PG (26-34); Mean Corpuscular Volume 96.1 fL (80-100); Monocytes Absolute Auto 300 /uL (0-900); Monocytes Percent Auto 10.1 % (3-14); Neutrophils Absolute Auto 1500 /uL (1500-7000); Neutrophils Percent Auto 45.2 % (50-75); Platelet Count 255 X10^3/uL (150-400); Red Blood Cell Count 4.18 X10^6/uL (4.0-5.2); Red Cell Distribution Width 12.5 % (11.6-14.8); White Blood Cell Count 3.3 X10^3/uL (4.5-11.0)
[2021-09-21 10:28] LABS: Alanine Aminotransferase 18 IU/L (<35); Albumin 4.7 g/dL (3.5-5.0); Albumin Globulin Ratio 1.3 (1.0-2.8); Alkaline Phosphatase 75 U/L (38-126); Aspartate Aminotransferase 30 IU/L (14-36); BUN Creatinine Ratio 16.8 (6-22); Bilirubin Total 0.8 mg/dL (0.2-1.3); Blood Urea Nitrogen 20 mg/dL (7-17); Calcium 9.9 mg/dL (8.4-10.2); Carbon Dioxide 31 mmol/L (22-32); Chloride 99 mmol/L (98-107); Estimated Glomerular Filt Rate 43.9 mL/min (>60); Globulin 3.5 g/dL (1.7-4.1); Glucose 111 mg/dL (80-110); HEMOLYSIS < 15 (0-50); Potassium 3.9 mmol/L (3.4-5.1); Sodium 136 mmol/L (137-145); Total Protein 8.2 g/dL (6.3-8.2)
[2021-09-21 13:37] LABS: Appearance Urine UA CLEAR; Bilirubin Urine UA NEGATIVE (NEGATIVE); Color Urine UA YELLOW; Glucose Urine UA NEGATIVE (Negative); Ketones Urine UA NEGATIVE (NEGATIVE); Leukocyte Esterase Urine UA TRACE (NEGATIVE); Nitrite Urine UA NEGATIVE (Negative); Occult Blood Urine UA TRACE-LYSED (Negative); Protein Urine UA NEGATIVE (Negative); Specific Gravity Urine UA <=1.005 (1.000-1.035); Urobilinogen Urine UA 0.2 E.U./dL (0.2)
[2021-09-21 13:41] LABS: Bacteria Urine None Seen; Culture Indicated Urine Cult Not Indicated; RBC Urine None Seen (0-5/HPF); Urine Comments Microscopic Normal; WBC Urine None Seen (0-5/HPF)
[2021-09-21 14:36] LABS: Creatinine Urine Random 81.3 mg/dL; Protein (Total) Urine Random 6 mg/dL (0-12); Protein Creatinine Ratio Urine 0.07 GRAM/24H
[2021-09-21 14:41] LABS: Microalbumin Urine Random < 0.6 mg/dL (0-1.6)
== END ==
PROVIDERS: PCP Family Medicine; Referring Provider Internal Medicine Nephrology; Visit Provider Internal Medicine Nephrology
DX: N18.32 Chronic kidney disease, stage 3b (principal)
CPT/HCPCS: 36415; 80053; 81001; 82043; 82570; 84156; 85025

== ENCOUNTER → 2022-10-22 10:28 | Outpatient (CLI) | payer MEDICARE, OTHER, SELFPAY ==
[2022-10-22 11:17] LABS: Add Manual Diff / Slide Review NO; Basophils Absolute Auto 100 /uL (0-100); Basophils Percent Auto 1.1 % (0-2); Eosinophils Absolute Auto 0 /uL (0-450); Eosinophils Percent Auto 0.4 % (2-4); Hematocrit 38.7 % (36-46); Lymphocytes Absolute Auto 1700 /uL (1100-4500); Lymphocytes Percent Auto 35.4 % (25-40); Mean Corpuscular HGB Conc 33.7 % (30-36); Mean Corpuscular Hemoglobin 32.9 PG (26-34); Mean Corpuscular Volume 97.5 fL (80-100); Monocytes Absolute Auto 300 /uL (0-900); Monocytes Percent Auto 7.4 % (3-14); Neutrophils Absolute Auto 2600 /uL (1500-7000); Neutrophils Percent Auto 55.7 % (50-75); Platelet Count 271 X10^3/uL (150-400); Red Blood Cell Count 3.96 X10^6/uL (4.0-5.2); Red Cell Distribution Width 12.7 % (11.6-14.8); White Blood Cell Count 4.7 X10^3/uL (4.5-11.0)
[2022-10-22 11:28] LABS: Alanine Aminotransferase 19 IU/L (<35); Albumin 4.4 g/dL (3.5-5.0); Albumin Globulin Ratio 1.3 (1.0-2.8); Alkaline Phosphatase 63 U/L (38-126); Aspartate Aminotransferase 26 IU/L (14-36); BUN Creatinine Ratio 19.4 (6-22); Bilirubin Total 0.5 mg/dL (0.2-1.3); Blood Urea Nitrogen 21 mg/dL (7-17); Calcium 9.7 mg/dL (8.4-10.2); Carbon Dioxide 30 mmol/L (22-32); Chloride 97 mmol/L (98-107); Estimated Glomerular Filt Rate 52 mL/min (>60); Globulin 3.4 g/dL (1.7-4.1); Glucose 113 mg/dL (80-110); HEMOLYSIS 22 (0-50); Potassium 4.2 mmol/L (3.4-5.1); Sodium 134 mmol/L (137-145); Total Protein 7.8 g/dL (6.3-8.2)
[2022-10-22 11:50] LABS: Creatinine Urine Random 18.1 mg/dL
[2022-10-22 11:58] LABS: Microalbumin Urine Random < 0.6 mg/dL (0-1.6)
[2022-10-22 12:31] LABS: TSH w/ Reflex to FT4 0.02 uIU/mL (0.47-4.68)
[2022-10-22 19:30] LABS: Free T4, Direct Thyroxine 1.53 ng/dL (0.78-2.19)
== END ==
PROVIDERS: PCP Family Medicine; Referring Provider Family Medicine; Visit Provider Family Medicine
DX: E03.9 Hypothyroidism, unspecified (principal); I10 Essential (primary) hypertension; N18.32 Chronic kidney disease, stage 3b
CPT/HCPCS: 36415; 80053; 82043; 82570; 84439; 84443; 85025

== ENCOUNTER → 2022-12-04 07:16 | Outpatient (CLI) | payer MEDICARE, OTHER, SELFPAY | PROVIDERS: PCP Family Medicine; Referring Provider Family Medicine; Visit Provider Family Medicine | DX: E03.9 Hypothyroidism, unspecified (principal) | CPT/HCPCS: 36415; 84443 ==

== ENCOUNTER → 2023-07-03 07:17 | Outpatient (CLI) | payer MEDICARE, OTHER, SELFPAY ==
[2023-07-03 08:03] LABS: Add Manual Diff / Slide Review NO; Basophils Absolute Auto 0 /uL (0-100); Basophils Percent Auto 1.3 % (0-2); Eosinophils Absolute Auto 100 /uL (0-450); Eosinophils Percent Auto 2.4 % (2-4); Hematocrit 39.6 % (36-46); Hemoglobin 13.2 g/dL (12.0-16.0); Lymphocytes Absolute Auto 1500 /uL (1100-4500); Lymphocytes Percent Auto 42.1 % (25-40); Mean Corpuscular HGB Conc 33.4 % (30-36); Mean Corpuscular Hemoglobin 32.2 PG (26-34); Mean Corpuscular Volume 96.5 fL (80-100); Monocytes Absolute Auto 400 /uL (0-900); Neutrophils Absolute Auto 1600 /uL (1500-7000); Neutrophils Percent Auto 44.2 % (50-75); Platelet Count 266 X10^3/uL (150-400); Red Cell Distribution Width 13.1 % (11.6-14.8); White Blood Cell Count 3.6 X10^3/uL (4.5-11.0)
[2023-07-03 08:23] LABS: BUN Creatinine Ratio 16.4 (6-22); Blood Urea Nitrogen 19 mg/dL (7-17); Calcium 9.6 mg/dL (8.4-10.2); Carbon Dioxide 29 mmol/L (22-32); Chloride 98 mmol/L (98-107); Estimated Glomerular Filt Rate 48 mL/min (>60); Glucose 104 mg/dL (80-110); HEMOLYSIS < 15 (0-50); Potassium 3.6 mmol/L (3.4-5.1); Sodium 134 mmol/L (137-145)
[2023-07-03 09:07] LABS: TSH w/ Reflex to FT4 1.43 uIU/mL (0.47-4.68)
== END ==
PROVIDERS: PCP Family Medicine; Referring Provider Family Medicine; Visit Provider Family Medicine
DX: I10 Essential (primary) hypertension (principal); E78.5 Hyperlipidemia, unspecified; E03.9 Hypothyroidism, unspecified
CPT/HCPCS: 36415; 80048; 84443; 85025

== ENCOUNTER → 2023-07-05 14:45 | Outpatient (CLI) | payer MEDICARE, OTHER, SELFPAY ==
[2023-07-05 17:49] LABS: Creatinine Urine Random 46.6 mg/dL
[2023-07-05 17:58] LABS: Microalbumin Urine Random < 0.6 mg/dL (0-1.6)
== END ==
PROVIDERS: PCP Family Medicine; Referring Provider Family Medicine; Visit Provider Family Medicine
DX: I10 Essential (primary) hypertension (principal); E78.5 Hyperlipidemia, unspecified; E03.9 Hypothyroidism, unspecified
CPT/HCPCS: 82043; 82570

== ENCOUNTER → 2024-09-22 08:13 | Outpatient (CLI) | payer MEDICARE, OTHER, SELFPAY ==
[2024-09-22 10:26] LABS: Alanine Aminotransferase 17 IU/L (<35); Albumin 4.4 g/dL (3.5-5.0); Albumin Globulin Ratio 1.5 (1.0-2.8); Alkaline Phosphatase 123 U/L (38-126); Aspartate Aminotransferase 27 IU/L (14-36); BUN Creatinine Ratio 21.7 (6-22); Bilirubin Total 0.6 mg/dL (0.2-1.3); Blood Urea Nitrogen 28 mg/dL (7-17); Calcium 9.8 mg/dL (8.4-10.2); Carbon Dioxide 27 mmol/L (22-32); Chloride 101 mmol/L (98-107); Estimated Glomerular Filt Rate 42 mL/min (>60); Glucose 98 mg/dL (80-110); HEMOLYSIS < 15 (0-50); Potassium 4.4 mmol/L (3.4-5.1); Sodium 138 mmol/L (137-145); Total Protein 7.4 g/dL (6.3-8.2)
[2024-09-22 10:52] LABS: TSH w/ Reflex to FT4 2.71 uIU/mL (0.47-4.68)
[2024-09-22 16:24] LABS: Creatinine Urine Random 102.64 mg/dL; Protein (Total) Urine Random 6 mg/dL (0-12); Protein Creatinine Ratio Urine 0.05 GRAM/24H
== END ==
PROVIDERS: PCP Family Medicine; Referring Provider Family Medicine; Visit Provider Family Medicine
DX: E03.9 Hypothyroidism, unspecified (principal); N18.32 Chronic kidney disease, stage 3b; I12.9 Hypertensive chronic kidney disease with stage 1 through stage 4 chronic kidney disease, or unspecified chronic kidney disease
CPT/HCPCS: 36415; 80053; 82570; 84156; 84443